=== PATIENT | male | born 1965 | race Caucasian/White ===

== ENCOUNTER 2019-11-11 09:11 | Day surgery (SDC) | payer OTHER ==
[2019-11-11] MEDS ORDERED: propofoL 200 MG/20 ML VIAL IV ONE (09:29)
[2019-11-11] MEDS ORDERED: FENTANYL CITR 100 MCG/2 ML ONE (09:29)
[2019-11-11] MEDS ORDERED: MIDAZOLAM HCL 2 MG/2 ML INJ ONE (09:30)
[2019-11-11] MEDS ORDERED: LIDOCAINE 1% MPF 5 ML VIAL ONE (09:30)
[2019-11-11] MEDS ORDERED: ONDANSETRON 4 MG/2 ML VIAL ONE (09:32)
[2019-11-11] MEDS ORDERED: Ringers Lactate 1,000 ML IV ONE (09:40)
[2019-11-11] MEDS ORDERED: GENTAMICIN 80 MG/100 ML BAG 80 MG/100 ML BAG IV ONE (09:40)
[2019-11-11 10:44] LABS: Urine Appearance CLEAR; Urine Bilirubin NEGATIVE (NEG); Urine Blood 1+ (NEG); Urine Color YELLOW; Urine Glucose NEGATIVE (NEG); Urine Protein NEGATIVE (NEG); Urine Specific Gravity <=1.005 (1.005-1.030); Urine Urobilinogen 0.2 mg/dL (0.2-1.0)
[2019-11-11 10:53] VITALS: O2SAT 96
[2019-11-11 10:59] LABS: Urine Bacteria <20 /HPF (NONE SEEN); Urine RBC <5 /HPF (NONE SEEN)
[2019-11-11 11:00] LABS: Urine Culture Reflex Order NOT NEEDED
[2019-11-11 11:59] VITALS: BP 124/81; TEMP 98.3
== END 2019-11-11 11:50 | disposition home or self-care (01) ==
LOC: OR 09:11
PROVIDERS: ATTEND Urology
PROC: 0TJB8ZZ Inspection of Bladder, Via Natural or Artificial Opening Endoscopic (ICD-10-PCS; principal; 2019-11-11 10:00)
DX: N40.1 Benign prostatic hyperplasia with lower urinary tract symptoms (principal); N39.0 Urinary tract infection, site not specified; R30.0 Dysuria; R39.12 Poor urinary stream; R53.83 Other fatigue; E03.9 Hypothyroidism, unspecified; Z87.891 Personal history of nicotine dependence
CPT/HCPCS: 87088; 81001; 52000; J2704; J2250; J3010; J7120; J1580; J2405; 87086

== ENCOUNTER 2019-12-04 07:47 | Day surgery (SDC) | payer OTHER ==
[2019-12-02 14:07] LABS: Absolute Lymphocytes (CBC) 1.6 K/uL (0.7-4.9); Basophils % 0.8 % (0-1.3); Hematocrit 41.6 % (39.6-49.0); Lymphocytes % 28.3 % (15.3-44.8); MPV 8.4 fL (7.6-11.3); RBC Red Blood Cell Count 4.66 M/uL (4.33-5.43)
[2019-12-04] MEDS ORDERED: Ringers Lactate 1,000 ML IV ONE (08:07)
[2019-12-04] MEDS ORDERED: CEFAZOLIN/SWI 1gm 1 GM/10 ML SYR ONE (08:07)
[2019-12-04] MEDS ORDERED: ROCURONIUM 50 MG/5 ML VIAL IV ONE (08:32)
[2019-12-04] MEDS ORDERED: dexAMETHasone 10 MG/ML VIAL ONE (08:32)
[2019-12-04] MEDS ORDERED: MIDAZOLAM HCL 2 MG/2 ML INJ ONE (08:32)
[2019-12-04] MEDS ORDERED: FENTANYL CITR 100 MCG/2 ML ONE (08:32)
[2019-12-04] MEDS ORDERED: LIDOCAINE 2% MPF 5 ML VIAL ONE (08:32)
[2019-12-04] MEDS ORDERED: propofoL 200 MG/20 ML VIAL IV ONE (08:32)
[2019-12-04] MEDS ORDERED: KETOROLAC 30 MG/ML INJ ONE (09:34)
[2019-12-04] MEDS ORDERED: ONDANSETRON 4 MG/2 ML VIAL ONE (10:17)
[2019-12-04 10:20] VITALS: O2SAT 93
[2019-12-04 10:43] VITALS: BP 137/89; TEMP 97
[2019-12-04] MEDS ORDERED: HYDROCODONE/APAP 7.5/325 MG TAB ONE (11:10)
--- NOTE | 2019-12-04 11:44 | OP ---
Date of Procedure: 12/04/2019 Surgeon: Steven West MD Ict Managers: EZEQUIEL Melton. Preoperative Diagnosis: Incarcerated right inguinal hernia. Postoperative Diagnosis: Incarcerated right inguinal hernia. Procedure: Repair of incarcerated right inguinal hernia. Estimated Blood Loss: Minimal. Specimens: Hernia sac and cord lipoma. Anesthesia: General. Complications: None. Disposition: Patient tolerated the procedure in stable condition, taken to Recovery in good general condition. Operative Note: Patient was brought to the OR and placed in supine position, general anesthesia begu n. Patient was prepped and draped in the usual sterile fashion. Marcaine 0.5% was infiltrated in a field block fashion. A 15-blade was used to make a 4 cm oblique incision between the pubic tubercle and the anterior iliac superior spine. Subcutaneous tissue divided. Angel fascia identified and di vided. Aponeurosis identified, mobilized inferiorly to expose the shelving edge. The aponeurosis wa s very attenuated because of the incarceration. There was obvious incarcerated fat present. The apo neurosis was opened, the ilioinguinal nerve was retracted out of the field of dissection. Cord was m obilized at the pubic tubercle and skeletonized. There was incarcerated intestine in the hernia sac, which was reduced back into the peritoneal cavity and the sac was freed from the surrounding cord st ructures with sharp and blunt dissection. Bleeding controlled with cautery. Then, high ligation wit h 2-0 Prolene suture ligature and free hand tie done. Hernia sac excised, sent to Pathology as speci men. There was also cord lipoma there and then that was freed from the cord structures and high liga tion was done with 2-0 Prolene suture ligature and free hand tie and sent to Pathology as specimen. Then, Marlex mesh plug was placed in the internal ring. Skin with VersaTack stapler, onlay mesh was placed on the inguinal floor, secured medially to the pubic tubercle, inferior to the shelving edge, superior to the conjoined tendon, laterally to each other. Then, cord structures and ilioinguinal ne rve placed back in anatomic location. The aponeurosis was too attenuated for re-closure, 3-0 chromic was used to close Angel fascia. Hurlock were used to close the skin. Sterile dressing applied. P atient awakened and taken to Recovery in good general condition. Discharged home. The patient will go to Day Surgery and home when stable. Disposition: Home. Condition: Stable. Discharge Instructions: Resume home medications and diet. Activity as tolerated. No heavy lifting. Remove outer dressing in 2 days. Shower. Keep wound clean and dry. Keep Steri-Strips on at all t imes. Scrotal support, ice pack as ordered. Follow up in my office in 1 week. MARVIN/VENKAT Voice ID: [id number] Report ID: [id number]
== END 2019-12-04 12:25 | disposition home or self-care (01) ==
LOC: OR 07:47
PROVIDERS: ATTEND Surgery
PROC: 0YU50JZ Supplement Right Inguinal Region with Synthetic Substitute, Open Approach (ICD-10-PCS; principal; 2019-12-04 09:00)
DX: K40.30 Unilateral inguinal hernia, with obstruction, without gangrene, not specified as recurrent (principal); D17.6 Benign lipomatous neoplasm of spermatic cord; Z79.899 Other long term (current) drug therapy
CPT/HCPCS: 49507; 85025; 80048; 36415; 88302; J2704; J2250; J3010; J1100; J0690; J7120; J2405

== ENCOUNTER 2020-04-12 08:16 | Day surgery (SDC) | payer OTHER ==
--- OUTSIDE RECORDS SUMMARY | 2020-04-12 08:30 | XMS REPORT | Summary of Care ---
:1965 Author Organization [facility] Address [address] [place] [id number] Care Team Providers Name Role Phone Tanisha Diggs Primary Care Provider Reason for Visit Reason Comments Screening Pre-op Clearance Encounter Details Date Type Department Care Team Description 01/28/2020 Laboratory Only [facility] Yomi Arauz Jr., [address] [place] [address] COVID-19 (Primary Dx); Professional Office Only, Adc Test Special screening examination for viral disease Building Phlebotomy Lab Professional Office Building [address] [place] [address] , [address] [place] [address] Allergies No Known Allergiesdocumented as of this encounter (statuses as of 01/28/2020) Medications Medication Sig Dispensed Refills Start Date End Date Status traMADOL (ULTRAM) 50 mg Take 1 Tab by 20 Tab 0 08/28/2014 Active tablet mouth every 6 (six) hours as needed for Pain (scale 4-6). levothyroxine Take 137 mcg by 0 Active (SYNTHROID) 137 mcg mouth every tablet morning. omeprazole 20 mg capsule Take 20 mg by 0 Active mouth daily. documented as of this encounter (statuses as of 01/28/2020) Active Problems Problem Noted Date Hyperlipidemia 01/27/2020 GERD (gastroesophageal reflux disease) 01/27/2020 documented as of this encounter (statuses as of 01/28/2020) Social History Tobacco Use Types Packs/Day Years Used Date Former Smoker Cigarettes 2 31 Quit: 02/14/20 05 Smokeless Tobacco: Never Used Alcohol Use Drinks/Week oz/Week Comments No Sex Assigned at Date Recorded Not on file Job Start Date Occupation Industry Not on file Not on file Not on file Travel History Travel Start Travel End No recent travel history available. COVID-19 Exposure Response Date Recorded In the last month, have you been in contact with No / Unsure 01/28/2020 3:53 PM CDT someone who was confirmed or suspected to have Coronavirus / COVID-19? documented as of this encounter Last Filed Vital Signs Not on filedocumented in this encounter Plan of Treatment Date Type Specialty Care Team Description 01/29/2020 Hospital Encounter Surgery Yomi Arauz Jr., H yperlipidemia DPM [address] [place], [place] [address] 01/29/2020 Anesthesia Event Surgery Charissa Whitman , [address] [phone] 01/29/2020 Surgery Surgery Yomi Arauz Jr., TALONAV ICULAR JOINT DPM ARTHRODESIS [address] [place], [place] [address] Health Maintenance Due Date Last Done Comments HEPATITIS C (HCV) SCREEN 1965 DTaP,Tdap,and Td Vaccines (1 - 1975 Tdap) COLONOSCOPY 2014 Zoster Recombinant Vaccine 2014 (SHINGRIX) (1 of 2) LUNG CANCER SCREEN: Recommended 2019 for age 55-80 with 30 + pack year history INFLUENZA VACCINE (Season Ended) 2020 PNEUMOCOCCAL 0-64 YEARS COMBINED Aged Out No longer eligible based on SERIES patient's age to complete this topic documented as of this encounter Procedures Procedure Name Priority Date/Time Associated Diagnosis Comme nts CORONAVIRUS COVID-19 Routine 01/28/2020 10:18 COVID-19 Results for this TESTING AM CDT Special screening procedure are in examination for the results viral disease section. documented in this encounter Results CORONAVIRUS COVID-19 TESTING (01/28/2020 10:18 AM CDT) Pathologist Sig nature SARS-CoV-2 Not Detected Not Detected [facility] Specimen Swab - NASOPHARYNGEAL SWAB Narrative Performed At [facility] COVID-19 Assay is an isothermal nucleic [facility] acid amplification test intended for the qualitative detection of nucleic acid from SARS-CoV-2 viral RNA in nasopharyngeal ([facility]) specimens. It is used under Emergency Use Authorization (EUA) by FDA. The limit of detection (LOD) of the assay is 125 Genome Equivalents/mL. A positive result is indicative of the presence of SARS-CoV-2 RNA. Clinical correlation with patient history and other diagnostic information is necessary to determine patient infection status. A negative (Not Detected) result does not preclude SARS-CoV-2 infection. Clinical correlation with patient history and other diagnostic information should be used in patient management decisions. Invalid: Please collect a new specimen for repeat patient testing if clinically indicated. Performing Organization Address City/State/Zipcode Phone Number [facility] CLIA: [id number], [address] [place], [place] [address] documented in this encounter Visit Diagnoses Diagnosis COVID-19 - Primary Special screening examination for viral disease Special screening examination for unspec ified viral disease documented in this encounter Insurance Payer Benefit Plan Subscriber ID Effective Phone Address Typ e / Group Dates [employer] - [employer] [id number] 2019-Prese [address] Medic are Adv MANAGED MEDICARE ADV nt [id number] [place] [address] documented as of this encounter
--- OUTSIDE RECORDS SUMMARY | 2020-04-12 08:30 | XMS REPORT | Summary of Care ---
:1965 Author Organization [facility] - [facility] Address [address] [place] [id number] Care Team Providers Name Role Phone Tanisha Diggs Primary Care Provider Reason for Referral (Routine) Status Reason Specialty Diagnoses / Referred By Referred To Procedures Contact Contact New Request Diagnostic Diagnoses Hallux valgus, right Yomi Arauz Radiology Procedures FL TIME OR (NON-REPORTABLE) CARLOS EDUARDO Griffin [address] [place] [address] DR DOSHI [facility] [place] [address] Radiology Services (STAT) Status Reason Specialty Diagnoses / Referred By Referred To Procedures Contact Contact New Request Diagnostic Diagnoses Arthrodesis present Yomi Arauz Radiology Procedures XR CHEST 1 REGLA Griffin, CARLOS EDUARDO [address] [place] [address] DR DOSHI [address] [place] [id number] Reason for Visit Auth/Cert Status Reason Specialty Diagnoses / Procedures Referred By C ontact Referred To Contact Surgery Diagnoses Hallux valgus (acquired), right foot RIGHT BUNION M20.11 (ICD-10-CM) - Hallux valgus (acquired), right foot Adc Pre/Pacu/Post Procedures AL FUSION FOOT BONE,MIDTARSAL,1 JT TALONAVICULAR JOINT ARTHRODESIS [id number] - AL FUSION FOOT BONE,MIDTARSAL,[address] [place] [address] christi [place], [place] [address] Phone: Fax: Encounter Details Date Type Department Care Team Description 01/29/2020 Hospital Encounter [facility] Yomi Arauz [facility] , CARLOS EDUARDO [address] [place] [address] [place] [address] [place] [address] RT 1500AD [phone] [place], [place] [address] [phone] Allergies No Known Allergiesdocumented as of this encounter (statuses as of 01/29/2020) Medications Medication Sig Dispensed Refills Start Date [...] as of this encounter (statuses as of 01/29/2020) Active Problems Problem Noted Date Arthrodesis present 01/29/2020 Obesity (BMI 30-39.9) 01/29/2020 Hyperlipidemia 01/27/2020 GERD (gastroesophageal reflux disease) 01/27/2020 documented as of this encounter (statuses as of 01/29/2020) Social History Tobacco Use Types Packs/Day Years [...] of this encounter Last Filed Vital Signs Vital Sign Reading Time Taken Comments Blood Pressure 126/77 01/29/2020 10:40 AM CDT Pulse 71 01/29/2020 10:40 AM CDT Temperature 36.6 C (97.9 F) 01/29/2020 6:37 AM CDT Respiratory Rate 12 01/29/2020 10:40 AM CDT Oxygen Saturation 95% 01/29/2020 10:40 AM CDT Inhaled Oxygen Concentration - - Weight 120.2 kg (265 lb) 01/27/2020 2:00 PM CDT Height 185.4 cm (6' 1") 01/27/2020 2:00 PM CDT Body Mass Index 34.96 01/27/2020 2:00 PM CDT documented in this encounter Discharge Summaries Yomi Arauz Jr., DPM - 01/29/2020 9:46 AM CDTCONDITION AT DISCHARGE: Patient was discharged from the facility in stable condition. Please see tena arvizu instructions. FOLLOW UP CARE: See post op instructions. DISCHARGE DISPOSITION: HOME DISCHARGE INSTRUCTIONS GIVEN TO: PATIENT documented in this encounter Discharge Instructions InstructionsVeronika Petersen RN - 01/29/2020General Discharge Instructions Procedure: Lower Extremity Procedures Dr. Arauz 1. You may resume a regular diet. 2. Keep your incision clean and dry. Leave the surgical dressing in place until you are seen in clinic by Dr. Arauz. When showering, cover the splint/ surgical dressing with a plastic bag to prevent it from getting wet. 3. Non weight bearing as advised with the use of crutches or a walker. 4. Elevate the leg while sitting or lying down to provide comfort, support and decrease swelling. 5. Deep Vein Thrombosis Prophylaxis when resting/ sitting, flex and extend the non-surgical foot, and if allowed may flex/ extend the knee, 10 times every 30 minutes to prevent blood clots. 6. Take prescribed pain medications around the clock for the 1st 24 hours. If provided, take antibiotics as prescribed until completely finished. 7. No driving until you no longer require pain medications and have been cleared by your physician. 8. Call Dr. Stanford office or seek emergency help if you develop significant pain, excessive bleeding or signs of infection (fever, redness, warmth, swelling, chest pain, breathlessness, altered blood sugar levels, sweating, altered consciousness, or pain). 9. Check circulation on the surgical extremity every 2 hours for the 1st 24 hours. Assess capillary refill by pressing the tip of the toenail to ensure proper blood flow. The tissue will turn a palecolor while you apply pressure but the toe should return to a normal pink color within 3 seconds of pressure withdrawal. Assess the color and temperature of the toes then compare these findings to theunaffected foot. Assess the ability to move the toes as well as any numbness or tingling. Changes or inconsistencies between extremities is a good indicator of reduced blood flow or nerve damage and should be reported to Dr. Stanford office immediately. Contact Information After Hours: [facility] Access Line [phone] and ask to speak to the Nurse On-Call General Surgical Discharge Instructions: ? The medication that was used will be acting in your system for the next 24 hours, so you might feel a little drowsy, with impaired judgment and/ or motor function. This feeling should wear off. Because the medication is still in your system for the next 24 hours you SHOULD NOT: o Drive a car, operate machinery or power tools. o Drink any alcoholic beverages. o Make any important decisions or sign any legal documents. ? You should rest the remainder of the day and not engage in any physical activity. YOU ARE RESPONSIBLE FOR HAVING SOMEONE AT HOME WITH YOU DURING THE AFTERNOON AND NIGHT IMMEDIATELY FOLLOWING YOUR SURGERY. Patients should cough and deep breathe every 2-4 hours while awake to avoid respiratory complications. ? Because the medications used could produce some residual nausea and vomiting after you go home, you should eat lightly today, starting with clear liquids (broth, soft drinks, apple juice, jello) and toast or crackers, progressing to your normal diet as tolerated. If you get sick, wait a couple of hours and then begin to eat. After 24 hours the nausea should be gone. If your nausea persists, callyour physician. ? You may experience some pain and your physician will advise you on what to take for discomfort. This should be taken as directed. If the pain is not relieved, contact your physician. You may also have a sore throat from the airway/ breathing tube that was in place. You may use lozenges, throat spray (Chloraseptic), or warm salt water gargles for symptomatic relief. ? If you are unable to urinate within five hours after your procedure, call your physician. ? The type of surgery performed will determine how much bleeding (if any) to expect. Normally, somespotting might occur. If your dressing pad become saturated, notify your physician. Elevate surgical site, if applicable, to reduce swelling and pain. ? Preventing a surgical site infection: o Dont smoke. It is best to quit at least 30 days before surgery, but quitting after surgery is also helpful. o If you are a diabetic, keep your blood sugar well controlled. WASH YOUR HANDS. o Keep your wound clean and remember to wash your hands before and after contact with the area. o Call your doctor if you have signs of infection: ? increased tenderness at the surgical site ? red streaks or increased redness of the area ? bad-smelling discharge from the incision ? fever of 101 or higher Crutches: How to Use What are crutches? Crutches are supports that help you walk when you have an injured leg or foot. How do I use crutches? Walking Hold the qa specialist of the crutches. Bring the crutches forward evenly, keeping your injured leg off the ground. Lean forward, putting your weight on the qa specialist. Swing your good leg forward, placing your foot just in front of the crutches. Repeat. Don't rest your armpits on the crutches. The pressure of your weight on the underarms can cause damage to nerves that pass through the armpits. In some cases your healthcare provider may allow you to put some weight on your injured leg whileyou are using crutches. Follow your providers instructions. Getting up from a chair or bed Using the hand on the side of your injured leg, hold both crutches together by the qa specialist. Use your other hand to push up from the chair or bed while you also push up on the crutches. Stand on your goodleg. Get your balance and bring your crutches into position on each side before you start to walk. Sitting down Using the hand on the side of your injured leg, hold both crutches together by the qa specialist. Hold onto the chair or bed with the other hand and lower yourself slowly. Unless you are allowed to put some weight on your injured leg, keep your injured leg off the ground and keep your weight on the good leg. Stairs Going up. Get close to the stairs. Step up with the good leg. Then bring the crutches and the injured leg up to the same step. Repeat for each step. Going down. First bring the crutches and the injured leg down to the lower step. Then step down with the good leg. Repeat for each step. If there is a handrail, put both crutches under the arm opposite the rail and use the rail for support. Remember: "Up with the good, down with the bad." Going through doorways When you go through a doorway, be sure to give yourself enough room to allow your feet and crutches to clear the doorframe and door. After opening the door, block it from swinging closed with a crutch tip. How can I take care of myself while I'm using crutches? Be careful not to slip on water or ice. Sometimes crutches rub against the skin between your arms and chest. You may want to use body lotion or talcum powder to prevent skin chafing. If your hands get sore or tired, you may want to put extra padding on the crutch qa specialist. Be sure not to lean on the crutches and put pressure on your armpits. If you feel pressure on your armpits even when you use the crutches correctly, the crutches are too long and need to be shortened. [facility] Regional Anesthesia Peripheral Nerve Block Pamphlet Regional anesthesia is a type of anesthesia where your anesthesiologist injects medication near a cluster of nerves to numb only the area of your body that requires surgery. This injection, known as a "nerve block" can be performed for surgery on your extremities, or limbs, and blocks sensations from the arm or leg. Why regional anesthesia? Peripheral nerve blocks are often used to reduce the pain after surgery. You can expect up to 4-24 hours of pain relief after surgery; however, the exact duration of analgesia depends on many factors May allow your anesthesiologist to use less general anesthesia which may allow you to recover faster after the surgery is finished Strong opioid medications may cause constipation, itching, nausea, retching, breathing difficultyor drowsiness. Your nerve block can decrease the amount of these medications you may need after surgery and decrease possible side effects of nausea and feeling "groggy" Better pain control than intravenous narcotics Earlier recovery of bowel function Easier breathing resulting from better pain control Easier participation in physical therapy How is the nerve block done? After cleaning and numbing your skin, your anesthesiologist uses an ultrasound to make an injectionnear a cluster of nerves to "block" sensation to the area of your body that requires surgery. A special needle is placed near the cluster of nerves that need to be numbed for surgery. Occasionally, the needle will touch a nerve, causing a brief tingling sensation down the extremity where the regional block is being performed. The needle may also be used to temporarily obtain muscle twitches in theextremity where surgery will occur. The block is administered at an appropriate location to provideanesthesia for the surgery. What can I expect? Nerve blocks affect many types of nerves, including nerves that control movement, pain and normal sensation. Nerve blocks cause feeling such as: 1. Numbness and tingling 2. Heaviness 3. Weakness or inability to move your arm or leg 4. A feeling that your arm or leg has "fallen asleep" You might also not have full muscle control of the affected part of your body. Please be sure to always check with your physician or nurse before you start to use any affected extremities for standing up or try to do other motor tasks. If you are having a shoulder or arm surgery, you may received a brachial plexus block near your collar bone. These nerve blocks are generally well tolerated but there may be signs and symptoms that you may notice, such as: 1. Change of your pupil size on the affected side 2. Slight droop of your eyelid 3. Stuffy nose 4. Certain degree of hoarseness 5. Mild shortness of breath These are normal reactions which typically go away after the nerve block is gone. If you have severe or prolonged shortness of breath, please go to the nearest Emergency Room. Instructions on Taking Your Pain Medication If needed, your surgeon will give you a prescription for pain medication. Start taking this medication before the nerve block first begins to wear off or when you first begin to feel discomfort. It often takes about 60 minutes for the oral pain medication to become fully effective. Keep in mind that nerve blocks often wear off in the middle of the night. If you are going to bed and the block has not started to wear off or you have not had any discomfort, consider taking your medication prior to going to sleep to prevent it from wearing off while you sleep. Another option is to set an alarm to go off in 2-3 hours so you can assess your block. If you notice the block is wearing off or you are starting to have discomfort, you can then take your medication. Once a nerve blockstarted to wear off, it is usually completely gone within 60 minutes. You need to take your pain medication as prescribed. Pain medications can cause sedation and decrease your breathing if you take more than you need for the level of pain you are having. Protection of a Numb Arm or Leg After a nerve block, you cannot feel pain, pressure or extremes in temperature in the affected limb, increasing the risk for injury. For example, it is possible to burn your numb arm or leg on a hot stove without knowing it. Here are some helpful tips to protect your arm or leg while it is numb: 1. Change position of your arm or leg often while awake (avoids putting too much pressure for long periods of time) 2. While sleeping, pad the limb with pillows to avoid rolling onto it while you sleep. If you havehad a shoulder or arm block, it is a good idea to sleep in a recliner with pillows under your arm toavoid rolling onto your numb arm as you sleep. 3. If you have a cast or tight dressing, check the color of your fingers/toes every couple of hours. Call your surgeon if any look discolored. 4. If you have had a leg block, have someone assist you with walking until the nerve block completely wears off. 5. Your numb leg or arm will not be able to feel extremes in temperatures. Be sure to cover your limb appropriately before going outside. 6. Ask your family or other support people to help you with the above tips. If you continue to feel the effects of the nerve block for longer than 48 hours, or if you have any other questions related to your nerve block, please call [phone] ([facility] acute pain service pager.Please enter your return phone number after the beeps). documented in this encounter Plan of Treatment Health Maintenance Due Date Last Done Comments [...] this topic documented as of this encounter Implants Implanted Type Area Carbide Die Maker Device Shelf Model / Identifier Expiration Serial / Date Lot Lapiplasty, System 2, Plating W/ 2.7mm Screws - Sn/A PLATE Right: [facility] 10/22/2022 [id number] / Implanted: Qty: 1 on 01/29/2020 by Yomi Arauz Jr., DPM at [facility] Foot CONCEPTS N /A / [id number] documented as of this encounter Procedures Procedure Name Priority Date/Time Associated Diagnosis Comme nts FL TIME OR Routine 01/29/2020 9:40 Hallux valgus, right Res ults for this (NON-REPORTABLE) AM CDT procedure a re in the results section. XR CHEST 1 VW STAT 01/29/2020 7:04 Arthrodesis present Res ults for this AM CDT procedure are i n the results section. CBC WITH DIFFERENTIAL STAT 01/29/2020 6:46 Re sults for this AM CDT procedure are i n the results section. ACTIVATED PARTIAL STAT 01/29/2020 6:46 Result s for this THRMPLAS KATHY AM CDT procedure are i n the results section. PROTHROMBIN TIME / STAT 01/29/2020 6:46 Resul ts for this INR AM CDT procedure are i n the results section. CBC WITH DIFFERENTIAL STAT 01/29/2020 6:46 Re sults for this AM CDT procedure are i n the results section. BASIC METABOLIC PANEL STAT 01/29/2020 6:46 Re sults for this (NA, K, CL, CO2, AM CDT procedure a re in GLUCOSE, BUN, the results CREATININE, CA) section. CONSENT/REFUSAL FOR Routine 01/28/2020 1:10 DIAGNOSIS AND PM CDT TREATMENT ASSIGNMENT OF Routine 01/28/2020 1:10 BENEFITS PM CDT documented in this encounter Results FL TIME OR (NON-REPORTABLE) (01/29/2020 9:40 AM CDT) Specimen Narrative Performed At These images do not require a Radiology diagnostic rep ort. PACS Performing Organization Address City/[facility] Phone Number PACS XR CHEST 1 VW (01/29/2020 7:04 AM CDT) Specimen Narrative Performed At . EXAM: XR CHEST 1 VW PACS/VR/DOSE HISTORY: surgery COMPARISON: None. FINDINGS: The heart and great vessels are normal and the lungs a re well expanded and clear Procedure Note [facility], Radiant Results Inft User - 2019 8:10 AM CDT . EXAM: XR CHEST 1 VW HISTORY: surgery COMPARISON: None. FINDINGS: The heart and great vessels are normal a nd the lungs are well expanded and clear Performing Organization Address City/[facility] Phone Number PACS/VR/DOSE CBC WITH DIFFERENTIAL (01/29/2020 6:46 AM CDT) Pathologist Sig nature WBC 5.26 4.20 - 10.70 [facility] 10*3/L [facility] RBC 4.99 4.26 - 5.52 [facility] 10*6/L [facility] HGB 15.2 12.2 - 16.4 g/dL [facility] HCT 44.2 38.4 - 49.3 % [facility] MCV 88.6 81.7 - 95.6 fL [facility] MCH 30.5 26.1 - 32.7 pg [facility] MCHC 34.4 31.2 - 35.0 g/dL [facility] RDW-SD 40.6 38.5 - 51.6 fL [facility] RDW-CV 12.6 12.1 - 15.4 % [facility] PLT 183 150 - 328 [facility] 10*3/L [facility] MPV 10.2 9.8 - 13.0 fL [facility] NRBC/100 WBC 0.0 0.0 - 10.0 /100 [facility] WBCs [facility] NRBC x10^3 <0.01 10*3/L [facility] GRAN MAT (NEUT) % 62.6 % [facility] IMM GRAN % 0.40 % [facility] LYMPH % 24.5 % [facility] MONO % 9.9 % [facility] EOS % 1.5 % [facility] BASO % 1.1 % [facility] GRAN MAT x10^3(ANC) 3.29 1.99 - 6.95 [facility] 10*3/uL [facility]ITAL [facility] IMM GRAN x10^3 <0.03 0.00 - 0.06 [facility] 10*3/uL [facility] LYMPH x10^3 1.29 1.09 - 3.23 [facility] 10*3/uL [facility] MONO x10^3 0.52 0.36 - 1.02 [facility] 10*3/uL [facility] EOS x10^3 0.08 0.06 - 0.53 [facility] 10*3/uL [facility] BASO x10^3 0.06 0.01 - 0.09 [facility] 10*3/uL [facility] Specimen Blood - ARM, RIGHT Performing Organization Address City/[facility]/Zipcode Phone Number [facility] CLIA: [id number], [address] [place], [place] [address] aPTT (01/29/2020 6:46 AM CDT) Pathologist Sig nature APTT Patient 35 23 - 38 Seconds [facility] Specimen Blood - ARM, RIGHT Narrative Performed At The [facility] patient population mean normal value [facility] for aPTT is 30 seconds. Performing Organization Address City/[facility]/Zipcode Phone Number [facility] CLIA: [id number], [address] [place], [place] [address] PROTHROMBIN TIME / INR (01/29/2020 6:46 AM CDT) PROTIME PATIENT 12.3 12.0 - 14.7 [facility] Seconds [facility] INR 1.0Comment: Normal [facility] INR <1.1; [facility] Therapeutic range LABORATORY 2.0 to 3.0 or 2.5 to 3.5, depending upon the indications. Specimen Blood - ARM, RIGHT Performing Organization Address [facility] Cent[facility]ode Phone Number [facility] CLIA: [id number], [address] [place] [id number] [address] BASIC METABOLIC PANEL (NA, K, CL, CO2, GLUCOSE, BUN, CREATININE, CA) (01/29/2020 6:46 AM CDT) Pathologist Sig nature NA 140 135 - 145 [facility] mmol/L [facility] K 4.2 3.5 - 5.0 [facility] mmol/L [facility] CL 106 98 - 108 mmol/L [facility] CO2 TOTAL 26 23 - 31 mmol/L [facility] AGAP 8 2 - 16 [facility] BUN 14 7 - 23 mg/dL [facility] GLUCOSE 112 (H) 70 - 110 mg/dL [facility] CREATININE 0.82 0.60 - 1.25 [facility] mg/dL [facility] CALCIUM 9.3 8.6 - 10.6 [facility] mg/dL [facility] eGFR Calculation 97.5 mL/min/1.73m2 [facility] ([facility] LABORATORY Brazilian) eGFR Calculation 118.2 mL/min/1.73m2 [facility] () [facility] Specimen Blood - ARM, RIGHT Narrative Performed At Association of Glomerular Filtration Rate (GFR) [facility] and Staging of Kidney Disease* + + +- + | GFR (mL/min/1.73 m2) | With Kidney Damage | Without Kidney Damage + + +- + | >90 | Stage one | Normal + + +- + | 60-89 | Stage two | Decreased GFR + + +- + | 30-59 | Stage three | Stage three + + +- + | 15-29 | Stage four | Stage four + + +- + | <15 (or dialysis) | Stage five | Stage five + + +- + *Each stage assumes the associated GFR level has been in effect for at least three months. Stages 1 to 5, with or without kidney disease, indicate chronic kidney disease. Notes: Determination of stages one and two (with eGFR >59mL/min/1.73 m2) requires estimation of kidney damage for at least three months as defined by structural or functional abnormalities of the kidney, manifested by either: Pathological abnormalities or Markers of kidney damage (including abnormalities in the composition of the blood or urine or abnormalities in imaging tests). Performing Organization Address City/State/Zipcode Phone Number [facility] CLIA: [id number], [address] [place] [address] [facility] documented in this encounter Visit Diagnoses Diagnosis Arthrodesis present - Primary Arthrodesis status Hallux valgus, right Hyperlipidemia Other and unspecified hyperlipidemia GERD (gastroesophageal reflux disease) Esophageal reflux Obesity (BMI 30-39.9) Obesity, unspecified documented in this encounter Administered Medications Medication Order MAR Action Action Date Dose Rate Site bupivacaine (preserv free) Given 01/29/2020 8:13 AM CDT 10 mL Right Foot 0.5% (SENSORCAINE MPF) 0.5 % (5 mg/mL) 5 mL, lidocaine 1% (PF) (XYLOCAINE) 5 mL PRN, Starting Reena 01/29/20 at 0831, Intra-op HYDROcodone-acetaminophen (NORCO) 10-325 mg tablet 1 tablet 1 tablet, Oral, Q6HPRN, Starting Reena 01/09 09/29 at 0949, Until Discontinued, Routine, Pain (scale 4-6), DSU Recovery HYDROcodone-acetaminophen (NORCO) 10-325 Given 01/29/2020 10 :31 AM CDT 1 tablet mg tablet 1 tablet 1 tablet, Oral, Q6HPRN, Starting Reena 01/29/20 at 0949, Until Discontinued, Routine, Pain (scale 4-6), Pain (scale 7-10), DSU Recovery morpHINE injection 2 mg 2 mg, Slow IV Push, Q5MIN PRN, 5 doses, Starting Reena at 0949, Until Discontinued, Routine, Pain (scale 4-6), PACU morpHINE injection 4 mg 4 mg, Slow IV Push, Q5MIN PRN, 2 doses, Starting Reena at 0949, Until Discontinued, Routine, Pain (scale 7-10), PACU ondansetron (ZOFRAN (PF)) injection 4 mg 4 mg, Slow IV Push, PRN, 1 dose, Startin g Reena 01/29/20 at 0949, Until Discontinued, Routine, Nausea and Vomiting (N/V), PACU sodium chloride 0.9 % irrigation Given 01/29/2020 8:13 AM CDT 1 ,000 mL Right Foot solution PRN, Starting Reena 01/29/20 at 0833, Until Discontinued, Intra-op traMADol (ULTRAM) tablet 50 mg 50 mg, Oral, Q6HPRN, Starting Reena 01/29/20 at 0949, Unt il Discontinued, Routine, Pain (scale 1-3), DSU Recovery documented in this encounter Insurance Payer Benefit Plan Subscriber ID Effective Phone Address Typ e / Group Dates AETNA - AETNA MEBTVFJZ 2019-Prese P O BOX Medic are Adv MANAGED MEDICARE ADV nt [id number] [place] [address] documented as of this encounter
--- OUTSIDE RECORDS SUMMARY | 2020-04-12 08:30 | XMS REPORT | Continuity of Care Document ---
:1965 [address] [facility] t Address [address] [place] [address] Care Team Providers Name Role Phone Tanesha Arauz DPM Attending Clinician Lisa Whitman CRNA Attending Clinician Veronica Day MD Attending Clinician Only, Test Attending Clinician Unavailable Tanesha Arauz DPM Admitting Clinician Problems This patient has no known problems. Allergies, Adverse Reactions, Alerts This patient has no known allergies or adverse reactions. Medications This patient has no known medications. Procedures This patient has no known procedures. Encounters Start End Encounter Admission Attending Care Care Encounter Source Date/Time Date/Time Type Type Clinicians Facility Department ID 2020-01-29 2020-01-29 [facility] [id number] 06:29:00 11:24:00 Encounter Yomi García [id number] [place] [id number] Surgical [id number] [place] 071 2020-01-29 2020-01-29 Anesthesia Charissa Whitman [facility] [id number] 08:00:00 09:53:00 Jose Miguel Day [id number] [place] [id number] Surgical [id number] [place] 020 2020-01-28 2020-01-28 Laboratory Only, [facility] [id number] 10:16:22 10:31:22 Only Test Ricky [id number] [place] [id number] Professio [id number] [facility] [address] Results This patient has no known results.
--- OUTSIDE RECORDS SUMMARY | 2020-04-12 08:31 | XMS REPORT | Summary of Care ---
:1965 Author Organization [facility] - Health Address [address] [place] [address] Care Team Providers Name Role Phone DontaeTanisha Primary Care Provider Reason for Visit Auth/Cert Status Reason Specialty Diagnoses / Procedures Referred By Rahul ontact Referred To Contact Surgery Diagnoses Hallux valgus (acquired), right foot RIGHT BUNION M20.11 (ICD-10-CM) - Hallux valgus (acquired), right foot Adc Pre/Pacu/Post Procedures LA FUSION FOOT BONE,MIDTARSAL,1 JT TALONAVICULAR JOINT ARTHRODESIS 12840 - LA FUSION FOOT BONE,MIDTARSAL,1 JT [address] [facility] [place] [address] Phone: Fax: Encounter Details Date Type Department Care Team Description 01/29/2020 Anesthesia [facility] Jose Miguel Borjas MD [address] [facility] [id number] [place] [address] [phone] Surgical Center Charissa Whitman CRNA [address] [place] [id number] [address] [place] [address] [address] [place], [place] [id number] Allergies No Known Allergiesdocumented as of this encounter (statuses as of 01/30/2020) Medications Medication Sig Dispensed Refills Start Date [...] as of this encounter (statuses as of 01/30/2020) Active Problems Problem Noted Date Arthrodesis present 01/29/2020 Obesity (BMI 30-39.9) 01/29/2020 Hyperlipidemia 01/27/2020 GERD (gastroesophageal reflux disease) 01/27/2020 documented as of this encounter (statuses as of 01/30/2020) Social History Tobacco Use Types Packs/Day Years [...] filedocumented in this encounter Plan of Treatment Health [...] of this encounter Implants Implanted Type Area X Ray Equipment Servicer Device Shelf Model / Identifier Expiration Serial / Date Lot Lapiplasty, System 2, Plating W/ 2.7mm Screws - Sn/A PLATE Right: [facility] 10/22/2022 [id number] / Implanted: Qty: 1 on 01/29/2020 by Yomi Arauz Jr., DPM at [facility] Foot CONCEPTS N /A / [id number] documented as of this encounter Procedures Procedure Name Priority Date/Time Associated Diagnosis Comme nts NERVE BLOCK Routine 01/30/2020 7:23 AM Results for this CDT procedure are i n the results section . INTUBATION Routine 01/29/2020 8:17 AM Results for this CDT procedure are i n the results section . documented in this encounter Results Nerve Block - Popliteal and adductor canal nerve blocks (01/30/2020 7:23 AM CDT) Narrative Performed At Jose Miguel Day MD 01/30/2020 7:30 AM Nerve Block Procedure: Other Peripheral Nerve Laterality: Right Surgical Anesthesia: no Start Time: 01/29/2020 7:10 AM End Time: 01/29/2020 7:34 AM Post Op Pain Management requested by chelsey leal per surgical: Other (per discussion) Anesthesiologist: Jose Miguel Day M D Performed by: anesthesiologist Preanesthetic timeout completed prior to procedure: pa tient identified,IV checked, site marked, risks and benefits discussed, surgical consent, monitors and equipment checked, pre-op e valuation, timeout performed Informed consent obtained patient wishes to proceed: yes Patient position: supine. Sterile Prep/Drape: Yes Monitoring: continuous pulse ox and bloo d pressure Injection Technique: single-shot Needle Type: Stimuplex Needle Gauge: 21 G Needle Length: 6.0 Number of Attempts: 1 Motor response present at (mA): 0.6 (att enuated at) Technique: Stimulating needle, Ultrasound guided, Nega tive aspiration and Intermittent aspiration during injection Sensory Effect: Adequate Events: Patient tolerated procedure well , Negative Aspiration, No paresthesia on incremental injection, Local anesthetic solution visualized around nerve and No symptoms of intraneu ral or IV injection Medications Given: Regional: Ropiv 0.5% 30 mL Sedation: Midazolam 2 mg Fentanyl 50 mcg Additional Notes:SP&D to right leg. Stimulating needle passed to sciatic nerve approx 10 cm proximal to popliteal crease. Nee dle visualized and stimulation noted. Stimulation attenuated at 0.6 mA. 20 ml of solution deposited around nerve. Next adductor canal visualiz ed, needle advanced to it and 10 ml of solution deposited ar ound nerve. Patient tolerated procedure well with medications administ ered as noted. ___ __ Intubation (01/29/2020 8:17 AM CDT) Narrative Performed At Cecil Lee CRNA 01/29/2020 8:1 7 AM Intubation Urgency: elective Airway not difficult General Information and Staff Patient location during procedure: OR Resident/DRAPERY HAND: Cecil Lee CRNA Performed: resident/DRAPERY HAND Indications and Patient Condition Indications for airway management: anest hesia Spontaneous Ventilation: absent Sedation level: deep Preoxygenated: yes Patient position: sniffing Mask difficulty assessment: 0 - not atte mpted Final Airway Details Final airway type: supraglottic airway Successful airway: unique Size 5 Number of attempts at approach: 1 Additional Comments Airway dry intact documented in this encounter Administered Medications Medication Order MAR Action Action Date Dose Rate Site ceFAZolin (ANCEF) injection Given 01/29/2020 8:11 AM CDT 2 g ONCE INTRA PROCEDURE, Starting Reena 01/29/20 at 0811, Until Reena 01/29/20 at 0953, GAUTAM, Intra-op dexamethasone (DECADRON PHOSPHATE) injec tion Given 01/29/2020 8:13 AM CDT 4 mg Intravenous, ONCE INTRA PROCEDURE, Starting Reena 01/29/20 at 0813, Until Reena 01/29/20 at 0953, Routine, Intra-op FENTanyl PF (SUBLIMAZE (PF)) injection Given 01/29/2020 8:03 AM CDT 50 mcg Intravenous, ONCE INTRA PROCEDURE, Starting Reena 01/29/20 at 0800, Until Reena 01/29/20 at 0953, Routine, Intra-op Given 01/29/2020 8:00 AM CDT 50 mcg lactated ringers IV infusion New Bag 01/29/2020 8:00 AM CDT IV Infusion, CONTINUOUS PRN, Starting Reena 01/29/20 at 0800, Until Reena 01/29/20 at 0953, Routine, Intra-op midazolam (VERSED) injection Given 01/29/2020 8:00 AM CDT 2 mg IV Push, ONCE INTRA PROCEDURE, Starting Reena 01/29/20 at 0800, Until Reena 01/29/20 at 0953, Routine, Intra-op phenylephrine (VAZCULEP) injection Given 01/29/2020 8:59 AM CDT 100 mcg ONCE INTRA PROCEDURE, Starting Reena 01/29/20 at 0859, Until Reena 01/29/20 at 0953, Routine, Intra-op propofol IV infusion Given 01/29/2020 8:03 AM CDT 200 mg Intravenous, ONCE INTRA PROCEDURE, Starting Reena 01/29/20 at 0803, Until Reena 01/29/20 at 0953, Routine, Intra-op documented in this encounter Insurance Payer Benefit Plan Subscriber ID Effective Phone Address Typ e / Group Dates AETNA - AETNA MEBTVFJZ 2019-Prese P O BOX Medic are Adv MANAGED MEDICARE ADV nt [id number] [place] [address] documented as of this encounter
[2020-04-12] MEDS ORDERED: CEFAZOLIN/SWI 1gm 1 GM/10 ML SYR ONE (08:46)
[2020-04-12] MEDS ORDERED: Ringers Lactate 1,000 ML IV ONE ×2 (08:46→12:01)
[2020-04-12] MEDS ORDERED: MIDAZOLAM HCL 2 MG/2 ML INJ ONE (09:11)
[2020-04-12] MEDS ORDERED: ROCURONIUM 50 MG/5 ML VIAL IV ONE ×2 (09:11→10:32)
[2020-04-12] MEDS ORDERED: LIDOCAINE 1% MPF 5 ML VIAL ONE (09:11)
[2020-04-12] MEDS ORDERED: FENTANYL CITR 100 MCG/2 ML ONE ×3 (09:11→11:18)
[2020-04-12] MEDS ORDERED: propofoL 200 MG/20 ML VIAL IV ONE (09:11)
[2020-04-12] MEDS ORDERED: dexAMETHasone 10 MG/ML VIAL ONE (10:08)
[2020-04-12] MEDS ORDERED: KETOROLAC 30 MG/ML INJ ONE (10:08)
[2020-04-12] MEDS ORDERED: ONDANSETRON 4 MG/2 ML VIAL ONE (10:09)
[2020-04-12] MEDS ORDERED: GLYCOPYRROLATE 0.2 MG/ML SYR ONE ×3 (10:32→11:28)
[2020-04-12] MEDS ORDERED: EPHEDRINE SULF 50 MG/ML VIAL ONE (10:41)
[2020-04-12] MEDS ORDERED: NS 0.9% VIAL 10 ML ONE (10:42)
[2020-04-12] MEDS ORDERED: NEOSTIGMINE 1 MG/ML -5 ML ONE (11:28)
[2020-04-12 12:50] VITALS: BP 144/90; TEMP 96.9; O2SAT 95
[2020-04-12] MEDS ORDERED: HYDROCODONE/APAP 7.5/325 MG TAB ONE (13:05)
--- NOTE | 2020-04-12 21:40 | OP ---
Date of Procedure: 04/12/2020 Surgeon: Steven West MD Reel Tender: EZEQUIEL Melton Preoperative Diagnoses: Recurrent right inguinal hernia and umbilical hernia. Postoperative Diagnoses: Recurrent right inguinal hernia and umbilical hernia. Procedures: Repair of right inguinal hernia, repair of umbilical hernia, and diagnostic laparoscopy. Estimated Blood Loss: Minimal. Specimens: Hernia sac. Findings: As above. Anesthesia: General. Complications: None. The patient tolerated the procedure in stable condition, taken to Recovery in good general condition. Please note, I asked Dr. Abad to review the findings, which was the appendix in the hernia sac. It is unusual. Discussed the case with him. Description Of Procedure: The patient was brought to the OR and placed in supine position. General anesthesia was begun. The patient was prepped and draped in usual sterile fashion. Marcaine 0.5% wa s infiltrated locally. A 15 blade was used to make a 4 cm oblique incision in the right groin. Subc utaneous tissue was divided. Angel's fascia identified and divided. The mesh plug was floating int o the tissue that had apparently from the internal ring. This was removed with sharp and b césar dissection. Cord was mobilized at the pubic tubercle. There was no aponeurosis. It was very a ttenuated. The cord was skeletonized and then there was what appeared to be a sliding hernia sac, wh ich was opened and in the tip of the sac, there was the appendix present with cecum. This was freed from the medial wall as this appeared to be a sliding hernia and , and then reduced back int o the peritoneal cavity. The hernia sac was excised and sent to Pathology. There was a new internal ring defect, remained. It was large, which was reapproximated with [id number] and 2-0 Prolene suture ligature. Then, there was a new internal ring created as well as the direct area where the sl iding hernia was, and Marlex mesh plug was placed in both locations and secured with VersaTack staple r. Onlay mesh was placed on the inguinal floor, secured medially to the pubic tubercle, and inferior ly to the shelving edge, laterally to each other and at the conjoined tendon. Cord structu res and ilioinguinal nerve were placed back in anatomic location. 3-0 chromic was used to approximat e subcutaneous tissue and close the skin. Then, a 2 cm incision was made over the umbilicus. There was a small umbilical hernia present of approximately 1 cm. Subcutaneous tissue was divided. Hernia sac and contents were identified and excised, good fascial edges obtained. #[address] aced and peritoneal cavity entered with 12 mm trocar under direct vision. Pneumoperitoneum was estab lished and a 5 mm trocar was placed in the left lower quadrant. Laparoscopy revealed complete covera ge of the hernia in the right inguinal region. I some of the scar tissue that was present on medially where the sliding hernia sac was and there was free peritoneum that was present and we us ed this to cover the internal ring with AbsorbaTack to cover the entire hole. This would allow a sec ond layer of protection for the patient. There was no other evidence of disease seen. The appendix was completely normal. There was no reason to remove the appendix at this time. There was no eviden ce of any inflammation noted. Then, all trocars were removed under direct vision. Stay sutures were tied to each other to close the umbilical hernia defect. Subcutaneous wounds were irrigated. Bleed ing controlled with cautery. 3-0 chromic used to reapproximate subcutaneous tissue and close the ski n. Sterile dressing was applied. The patient was awakened and taken to Recovery in good general con dition. Discharge Note: The patient will go to Day Surgery and home when stable. Disposition: Home. Condition: Stable. Discharge Instructions: Resume home medications and diet. Activity as tolerated. No heavy lifting. Remove outer dressing in 2 days. Shower. Keep wound clean and dry. Keep Steri-Strips on at all t imes. Follow up in my office in 1 week. Call for appointment. [place] 7.5 p.o. q.4 p.r.n. pain. Scr otal support and ice pack as directed. /MODL Voice ID: [id number] Report ID: [id number]
== END 2020-04-12 13:45 | disposition home or self-care (01) ==
LOC: OR 08:16
PROVIDERS: ATTEND Surgery
PROC: 0WQF0ZZ Repair Abdominal Wall, Open Approach (ICD-10-PCS; 2020-04-12)
PROC: 0YU50JZ Supplement Right Inguinal Region with Synthetic Substitute, Open Approach (ICD-10-PCS; principal; 2020-04-12 10:00)
DX: K40.31 Unilateral inguinal hernia, with obstruction, without gangrene, recurrent (principal); K42.9 Umbilical hernia without obstruction or gangrene; Z11.59 Encounter for screening for other viral diseases; Z79.899 Other long term (current) drug therapy
CPT/HCPCS: 49521; 49585; 88302; U0002; J2704; J2250; J3010 ×3; J1100; J2710; J0690; J7120 ×2; J2405

== ENCOUNTER 2020-08-20 16:07 | Emergency (ER) | payer OTHER ==
[2020-08-20] MEDS ORDERED: HYDROCODONE/APAP 5/325 MG TAB ONE (18:56)
[2020-08-20] MEDS ORDERED: TETANUS & DIPHTHERIA TOX,ADULT 0.5 ML VIAL ONE (18:57)
--- NOTE | 2020-08-20 20:31 | ER ---
Nurse's Notes [facility] Name: Dontae Delgadillo Age: 55 yrs Sex: Male : 1965 Arrival Date: 08/20/2020 Time: 16:09 Bed 12 Private MD: Diagnosis: Contusion of left hand Presentation: 08/20 16:30 Chief complaint: Patient states: had hand caught between two 2 2x4's about an hour ago, em reports swelling and pain to left hand, small abrasion noted to top of the left hand. Coronavirus screen: Client denies travel out of the [place] in the last 14 days. Ebola Screen: Patient negative for fever greater than or equal to 101.5 degrees Fahrenheit, and additional compatible Ebola Virus Disease symptoms Patient denies exposure to infectious person. Patient denies travel to an Ebola-affected area in the 21 days before illness onset. No symptoms or risks identified at this time. Initial Sepsis Screen: Does the patient meet any 2 criteria? No. Patient's initial sepsis screen is negative. Does the patient have a suspected source of infection? No. Patient's initial sepsis screen is negative. Risk Assessment: Do you want to hurt yourself or someone else? Patient reports no desire to harm self or others. Onset of symptoms was August 20, 2020. 16:30 Method Of Arrival: Ambulatory em 16:30 Acuity: EDUARD 4 em Historical: - Allergies: 16:33 No Known Allergies; em - PMHx: 16:33 Hypothyroidism; em - PSHx: 16:33 Hernia repair; em - Immunization history:: Immunization history: Last tetanus immunization: unknown. - Social history:: Smoking status: Patient denies any tobacco usage or history of. Assessment: 16:33 General: Appears in no apparent distress. comfortable, Behavior is calm, cooperative, em appropriate for age. Pain: Complains of pain in left hand Pain currently is 5 out of 10 on a pain scale. Neuro: Level of Consciousness is awake, alert, obeys commands, Oriented to person, place, time, situation, Appropriate for age. Cardiovascular: Capillary refill < 3 seconds Patient's skin is warm and dry. Respiratory: Airway is patent Respiratory effort is even, unlabored, Respiratory pattern is regular, symmetrical. Derm: Wound noted dorsum of left hand Wound is abrasion noted to the left hand. Musculoskeletal: Circulation, motion, and sensation intact. Capillary refill < 3 seconds, Range of motion: intact in all extremities, Swelling present in left hand. 16:34 Reassessment: received VO from Dr. Adame to order left hand x-ray from triage. em Vital Signs: 16:30 BP 141 / 90; Pulse 84; Resp 18; Temp 97.5; Pulse Ox 99% on R/A; Weight 120.66 kg; em Height 6 ft. 1 in. (185.42 cm); Pain 5/10; 16:30 Body Mass Index 35.09 (120.66 kg, 185.42 cm) em ED Course: 16:09 Patient arrived in ED. ag5 16:32 Triage completed. em 16:33 Arm band placed on. em 17:20 Edis Worley PA is PHCP. [facility] 17:20 Evelio Adame MD is Attending Physician. [facility] 18:34 Hand Left 3 View XRAY In Process Unspecified. EDMS 20:31 David Elliott MD is Referral Physician. [facility] 20:59 Yola Noel, RN is Primary Nurse. dm5 Administered Medications: 18:44 Drug: [place] 5 mg-325 mg 1 tabs Route: PO; em 18:52 Drug: Tetanus-Diphtheria Toxoid Adult 0.5 ml {Packing Machine Pilot Can Router: [employer]. Exp: iw 11/21/2021. Lot #: [id number]. } Route: IM; Site: right deltoid; Outcome: 20:31 Discharge ordered by . [facility] 21:33 Patient left the ED. dm5 Signatures: Dispatcher [employer] EDAK Yola Noel, RN Edis Ballard PA PA jmm Munoz, Edgar, Shante Antonio RN, RN RN Joe Martin [facility]
--- NOTE | 2020-08-20 20:31 | EDPHYS ---
Physician Documentation [facility] Name: Dontae Delgadillo Age: 55 yrs Sex: Male : 1965 Arrival Date: 08/20/2020 Time: 16:09 Bed 12 Private MD: ED Physician Evelio Adame HPI: 08/20 18:26 This 55 yrs old Male presents to ER via Ambulatory with complaints of Crush jmm Injury To Hand. 18:27 Onset: The symptoms/episode began/occurred acutely, just prior to arrival. Modifying jmm factors: The symptoms are alleviated by nothing, the symptoms are aggravated by nothing. Associated signs and symptoms: Pertinent negatives: cyanosis distally, numbness distally, tingling distally. This is a 55 year old male with a history of hypothyroidism that presents to the ED with complaints of left hand pain which occurred after his hand was slammed between 2 planks of wood. . Historical: - Allergies: 16:33 No Known Allergies; em - PMHx: 16:33 Hypothyroidism; em - PSHx: 16:33 Hernia repair; em - Immunization history:: Immunization history: Last tetanus immunization: unknown. - Social history:: Smoking status: Patient denies any tobacco usage or history of. ROS: 18:27 Constitutional: Negative for fever, chills, and weight loss, Eyes: Negative for injury, jmm pain, redness, and discharge, ENT: Negative for injury, pain, and discharge, Neck: Negative for injury, pain, and swelling, Cardiovascular: Negative for chest pain, palpitations, and edema, Respiratory: Negative for shortness of breath, cough, wheezing, and pleuritic chest pain, Abdomen/GI: Negative for abdominal pain, nausea, vomiting, diarrhea, and constipation, Back: Negative for injury and pain. 18:27 MS/extremity: Positive for pain. 18:27 All other systems are negative. Exam: 18:27 Constitutional: This is a well developed, well nourished patient who is awake, alert, jmm and in no acute distress. Head/Face: atraumatic. Eyes: EOMI, no conjunctival erythema appreciated ENT: Moist Mucus Membranes Neck: Trachea midline, Supple Chest/axilla: Normal chest wall appearance and motion. Cardiovascular: Regular rate and rhythm. No edema appreciated Respiratory: Normal respirations, no respiratory distress appreciated Abdomen/GI: Non distended, soft Back: Normal ROM 18:27 Musculoskeletal/extremity: hematoma noted to the left hand, compartments are soft, NVI. 18:27 Skin: injury, hematoma noted to the left hand, abrasion noted ot the dorsum of the left hand. 18:27 Neuro: Orientation: is normal, Mentation: is normal, Memory: is normal, appropriate for stated age. 18:27 Psych: Behavior/mood is pleasant, cooperative. Vital Signs: 16:30 BP 141 / 90; Pulse 84; Resp 18; Temp 97.5; Pulse Ox 99% on R/A; Weight 120.66 kg; em Height 6 ft. 1 in. (185.42 cm); Pain 5/10; 16:30 Body Mass Index 35.09 (120.66 kg, 185.42 cm) em MDM: 17:53 Patient medically screened. [place] 20:29 Data reviewed: vital signs, nurses notes. Counseling: I had a detailed discussion with [place] the patient and/or guardian regarding: the historical points, exam findings, and any diagnostic results supporting the discharge/admit diagnosis, radiology results, the need for outpatient follow up, to return to the emergency department if symptoms worsen or persist or if there are any questions or concerns that arise at home. ED course: Xray is negative. patient advised to follow up with hand for reevaluation. Patient is otherwise given strict return prcautions. Patient understood and agrees with the plan of care. . 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 Exp: iw 11/21/2021. Lot #: [id number]. } Route: IM; Site: right deltoid; Disposition: 08/20/20 20:31 Discharged to Home. Impression: Contusion of left hand. - Condition is Stable. - Discharge Instructions: Hand Contusion. - Prescriptions for Ultracet 37.5- 325 mg Oral Tablet - take 1 tablet by ORAL route every 6 hours - for up to 5 days; do not exceed 8 tablets per day.; 20 tablet. - Medication Reconciliation Form, Thank You Letter, Antibiotic Education, Prescription Opioid Use form. - Follow up: David Elliott MD; When: 2 - 3 days; Reason: Recheck today's complaints, Continuance of care, Re-evaluation by your physician. Addendum: 08/22/2020 17:45 Co-signature as Attending Physician, Evelio Adame MD I agree with the assessment and k dr plan of care. Signatures: Dispatcher [employer] EDYola Novak, RN RN dm5 Evelio Adame MD MD [facility] Edis Worley PA PA jmm Munoz, Edgar, RN RN em Shante Qureshi RN RN iw Corrections: (The following items were deleted from the chart) 08/20 21:33 20:31 08/20/2020 20:31 Discharged to Home. Impression: Contusion of left hand. dm5 Condition is Stable. Forms are Medication Reconciliation Form, Thank You Letter, Antibiotic Education, Prescription Opioid Use. Follow up: David Elliott; When: 2 - 3 days; Reason: Recheck today's complaints, Continuance of care, Re-evaluation by your physician. [place]
--- NOTE | 2020-08-20 20:34 | RAD REPORT ---
EXAM DESCRIPTION: RAD - Hand Left 3 View - 08/20/2020 6:34 pm CLINICAL HISTORY: SWELLINGcrush injury to the hand COMPARISON: None. FINDINGS: No fracture, dislocation or periosteal reaction noted. Advanced for age degenerative romeo es are present throughout the IP joints of the hand. There is marginal spurring and joint space narro wing at all of the DIP joints with joint space narrowing at the PIP joints. Prominent spurring is pre sent at the IP joint of the thumb. There is mild degenerative change at the trapezial first metacarpa l articulation. Soft tissue swelling present over the dorsum of the hand. IMPRESSION: Soft tissue swelling is present with no fracture identifiable. Advanced for age degenerative change at the IP joints of the left hand.
[2020-08-25 08:48] VITALS: BP 141/90; TEMP 97.5; O2SAT 99
== END 2020-08-20 21:33 | disposition home or self-care (01) ==
LOC: ER 16:07
DX: S60.222A Contusion of left hand, initial encounter (principal); W23.0XXA Caught, crushed, jammed, or pinched between moving objects, initial encounter; Y93.9 Activity, unspecified; Y92.9 Unspecified place or not applicable; Z23 Encounter for immunization
CPT/HCPCS: 90471; 90714; 99283

== ENCOUNTER 2023-03-31 17:36 | Inpatient (IN) | payer OTHER ==
--- OUTSIDE RECORDS SUMMARY | 2023-03-31 17:40 | XMS REPORT | Continuity of Care Document ---
:1965 Author Organization [facility] t Address [address] [place] [address] [address] [place] [address] Care Team Providers Name Role Phone Omar Diggs MD Primary Care Physician Wali Campbell MD Attending Clinician Denia Barrera DPM Attending Clinician DENIA BARRERA JR Attending Clinician Unavailable Charissa Whitman CRNA Attending Clinician Jose Miguel Day MD Attending Clinician Only, Adc Test Attending Clinician Unavailable Denia Barrera DPM Admitting Clinician DENIA BARRERA JR Admitting Clinician Unavailable Payers Payer Name Policy Type Policy Number Effective Date Expiration Date S ource Problems Condition Condition Condition Status Onset Resolution Last Treating Co mments Source Name Details Category Date Date Treatment Clinician Date Arthrodesi Arthrodesi Disease Active 2020-0 U emili s present s present 5-21 ity of 00:00: [place] 00 Medical Branch Obesity Obesity Disease Active 2020-0 Univers (BMI (BMI 5-21 ity of 30-39.9) 30-39.9) 00:00: [place] 00 Medical Branch GERD GERD Disease Active 2020-0 Univers (gastroeso (gastroeso 5-19 it y of phageal phageal 00:00: [place] reflux reflux 00 Medical disease) disease) Branch Hyperlipid Hyperlipid Disease Active 2020-0 U nivers emia emia 5-19 ity of 00:00: [place] [address] [facility] Pain in Pain in Diagnosis Active 2021-04-21 [facility] right foot right foot 02:01:32 l Active [facility] Diagnosis 04/21/2021 [facility] Closed Closed Diagnosis Active 2021-04-21 Me moria nondisplac nondisplac 02:01:32 l ed ed [facility] fracture fracture of first of first metatarsal metatarsal bone of bone of right foot right foot with with malunion, malunion, subsequent subsequent encounter encounter Active Diagnosis 04/21/2021 [facility] Weakness Weakness Problem Active 2021-04-21 Mem[facility] of right of right 02:01:32 l hip hip Active Josiah n Problem 04/21/2021 [facility] Metatarsal Diagnosis Active 2021-04-21 Memoria ewelina of Metatarsal 02:01:32 l right foot ewelina of Josiah n right foot Active Diagnosis 04/21/2021 [facility] Sprain of Sprain Diagnosis Active 2021-04-21 [facility] ligament of 02:01:32 l of ligament [facility] tarsometat of arsal tarsometat joint of arsal right joint of foot, right initial foot, encounter initial encounter Active Diagnosis 04/21/2021 [facility] Allergies, Adverse Reactions, Alerts Allergy Allergy Status Severity Reaction(s) Onset Inactive Treating Comm ents Source Name Type Date Date Clinician N.K.D.A. N.K.D.A. Active Info Not Jose L baltazar Available 8-10 l 00:00: [place] 00 NO KNOWN Drug Active Univers ALLERGIE Class ity of S [facility] Social History Social Habit Start Date Stop Date Quantity Comments Source Exposure to Not sure [facility] SARS-CoV-2 (event) [facility] Gender identity [facility] Sexual orientation [facility] Cigarettes smoked 2020-01-27 2020-01-27 Univers ity of current (pack per 00:00:00 00:00:00 [facility] [place] ) - Reported Branch Cigarette 2020-01-27 2020-01-27 University of pack-years 00:00:00 00:00:00 [facility] Alcohol intake 2020-01-27 2020-01-27 University of 00:00:00 00:00:00 [facility] History of tobacco 2005-02-13 Cigarette Smoker University of use 00:00:00 [facility] Sex Ass[birth year] At [birth year] [facility] 00:[facility]00 [facility] Smoking Status Start Date Stop Date Source Tobacco smoking [facility] consumption unknown Former smoker 2020-01-27 00:00:00 2020-01-27 [place] [facility] f [place] 00:00:00 [facility] Medications Ordered Filled Start Stop Current Ordering Indication Dosage Frequency Signature Comments Components Source Medication Medication Date Date Medication? Clinician (SIG) Name Name levothyroxi 2020-0 Yes 137ug Take 137 U nivers ne 5-21 mcg by ity of (SYNTHROID) 16:26: mouth [place] 137 mcg 27 every Medical tablet morning. Branch omeprazole 2020-0 Yes 20mg Take 20 mg U nivers 20 mg 5-21 by mouth ity of capsule 16:26: daily. [address] levothyroxi 2020-0 Yes 137ug Take 137 U nivers ne 5-21 mcg by ity of (SYNTHROID) 16:26: mouth [place] 137 mcg 27 every Medical tablet morning. Branch omeprazole 2020-0 Yes 20mg Take 20 mg U nivers 20 mg 5-21 by mouth ity of capsule 16:26: daily. [address] HYDROcodone 2020-0 Yes 1{tbl} 1 tablet, Univers -acetaminop 5-21 Oral, ity of hen (NORCO) 14:49: Q6HPRN, Yair as 10-325 mg 42 Starting Medica l tablet 1 Reena Branch tablet 01/29/20 at 0949, Until Discontinu ed, Routine, Pain (scale 4-6), Pain (scale 7-10), [facility] HYDROcodone 2020-0 Yes 1{tbl} 1 tablet, Univers -acetaminop 5-21 Oral, ity of hen (NORCO) 14:49: Q6HPRN, Yair as 10-325 mg 42 Starting Medica l tablet 1 Reena Branch tablet 01/29/20 at 0949, Until Discontinu ed, Routine, Pain (scale 4-6), [facility] Recovery traMADol 2020-0 Yes 50mg 50 mg, Univers (ULTRAM) 5-21 Oral, ity of tablet 50 14:49: Q6HPRN, [place] mg 42 Starting Medical Reena [place] 01/29/20 at 0949, Until Discontinu ed, Routine, Pain (scale 1-3), [facility] Recovery morpHINE 2020-0 Yes 4mg 4 mg, Slow Uni vers injection 4 01-28 IV Push, ity of mg 14:49: Q5MIN PRN, [place] 23 2 doses, Medical [facility] 01/29/20 at 0949, Until Discontinu ed, Routine, Pain (scale 7-10), PACU morpHINE 2020-0 Yes 2mg 2 mg, Slow Uni vers injection 2 01-28 IV Push, ity of mg 14:49: Q5MIN PRN, [place] 23 5 doses, Medical [facility] 01/29/20 at 0949, Until Discontinu ed, Routine, Pain (scale 4-6), PACU ondansetron 2020-0 Yes 4mg 4 mg, Slow Univers (ZOFRAN 01-28 IV Push, ity of (PF)) 14:49: PRN, 1 [place] injection 4 23 dose, Medical mg [facility] 01/29/20 at 0949, Until Discontinu ed, Routine, Nausea and Vomiting (N/V), PACU phenylephri 2020-0 2020- No ONCE INTRA Univers ne 01-28 PROCEDURE, ity of (VAZCULEP) 13:59: 14:53 Starting [place] injection 00 :27 Reena [facility] 01/29/20 at Branch 0859, Until Reena 01/29/20 at 0953, Routine, Intra-op sodium 2020-0 Yes PRN, Univers chloride 01-28 Starting ity of 0.9 % 13:33: Reena [place] irrigation 00 01/29/20 at Med ical solution 0833, Branch Until Discontinu ed, Intra-op bupivacaine 2020-0 Yes PRN, Univer s (preserv 01-28 Starting ity of free) 0.5% 13:31: Reena [place] (SENSORCAIN 00 01/29/20 at [address] E [facility]) 0.5 0831, Branch % (5 mg/mL) Intra-op 5 mL, lidocaine 1% (PF) (XYLOCAINE) 5 mL dexamethaso 2020-0 2020- No Intravenou Univers ne 01-28 s, ONCE ity of (DECADRON 13:13: 14:53 INTRA [place] PHOSPHATE) 00 :27 PROCEDURE, Med ical injection Starting Branch [facility] 01/29/20 at 0813, Until Reena 01/29/20 at 0953, Routine, Intra-op ceFAZolin 2020-0 2020- No ONCE INTRA U nivers (ANCEF) 01-28 PROCEDURE, ity o f injection 13:11: 14:53 Starting Yair as 00 :27 Reena Medical 01/29/20 at Branch 0811, Until Reena 01/29/20 at 0953, GAUTAM, Intra-op propofol IV 2019-0 2020- No Intravenou Univers infusion 01-28 s, ONCE ity of 13:03: 14:53 INTRA [place] 00 :27 PROCEDURE, [facility] Starting Branch [facility] 01/29/20 at 0803, Until [facility] 01/29/20 at 0953, Routine, Intra-op FENTanyl PF 2019-0 2020- No Intravenou Univers (SUBLIMAZE 01-28 s, ONCE ity o f (PF)) 13:00: 14:53 INTRA [place] injection 00 :27 PROCEDURE, Medi leida Starting Branch [facility] 01/29/20 at 0800, Until Reena 01/29/20 at 0953, Routine, Intra-op midazolam 2019-0 2020- No IV Push, Uni vers (VERSED) 01-28 ONCE INTRA ity of injection 13:00: 14:53 PROCEDURE, [place] 00 :27 Starting [facility] 01/29/20 at 0800, Until Reena 01/29/20 at 0953, Routine, Intra-op lactated 2019-0 2020- No IV Univers ringers IV 01-28 Infusion, ity of infusion 13:00: 14:53 CONTINUOUS [place] 00 :27 PRN, [facility] Starting Branch [facility] 01/29/20 at 0800, Until Reena 01/29/20 at 0953, Routine, Intra-op omeprazole 2019-0 Yes 20mg Take 20 mg U nivers 20 mg 5-19 by mouth ity of capsule 19:15: daily. [place] 01 Medical Branch levothyroxi 2013-09 Yes 137ug Take 137 U nivers ne 2-23 mcg by ity of (SYNTHROID) 19:04: mouth [place] 137 mcg 38 every Medical tablet morning. Branch traMADOL 2013-09 Yes 50mg Take 1 Tab Uni vers (ULTRAM) 50 2-19 by mouth ity of mg tablet 00:00: every 6 [place] 00 (six) Medical hours as Branch needed for Pain (scale 4-6). traMADOL 2013-09 Yes 50mg Take 1 Tab Uni vers (ULTRAM) 50 2-19 by mouth ity of mg tablet 00:00: every 6 [place] 00 (six) Medical hours as Branch needed for Pain (scale 4-6). traMADOL 2013-09 Yes 50mg Take 1 Tab Uni vers (ULTRAM) 50 2-19 by mouth ity of mg tablet 00:00: every 6 [place] 00 (six) Medical hours as Branch needed for Pain (scale 4-6). Vital Signs Vital Name Observation Time Observation Value Comments Source Systolic blood 2020-01-29 15:40:00 126 mm[Hg] Univer [facility] Diastolic blood 2020-01-29 15:40:00 77 mm[Hg] [facility] 2020-01-29 15:40:00 71 /min [facility] Respiratory rate 2020-01-29 15:40:00 12 /min [facility] Oxygen saturation in 2020-01-29 15:40:00 95 /min [place] of Arterial blood by [place] [employer] leida Pulse oximetry Branch Body temperature 2020-01-29 11:37:00 36.61 Natalya [facility] Body height 2020-01-27 19:00:00 185.4 cm [facility] Body weight 2020-01-27 19:00:00 120.203 kg [facility] BMI 2020-01-27 19:00:00 34.96 kg/m2 [facility] Systolic blood 2020-01-29 15:40:00 126 mm[Hg] Univer sity [facility] Diastolic blood 2020-01-29 15:40:00 77 mm[Hg] [facility] rate 2020-01-29 15:40:00 71 /min [facility] Respiratory rate 2020-01-29 15:40:00 12 /min [facility] O[facility] saturation in 2020-01-29 15:40:00 95 /min University of Arterial blood by [facility] [place] [facility] Pulse oximetry Branch Body temperature 2020-01-29 11:37:00 36.61 Natalya [facility] Body height 2020-01-27 19:00:00 185.4 cm [facility] [place] [facility] [place] [facility] Body weight 2020-01-27 19:00:00 120.203 kg [facility] [place] [facility] [place] [facility] BMI 2020-01-27 19:00:00 34.96 kg/m2 [facility] Diastolic (mm Hg) 2021-04-19 15:30:00 Mem orial [facility] Systolic (mm Hg) 2021-04-19 15:30:00 Jose L rial [facility] Weight 2021-04-19 15:30:00 [facility] Height 2021-04-19 15:30:00 [facility] Temperature Oral (F) 2021-04-19 15:30:00 96.8 F [facility] Heart Rate 2021-04-19 15:30:00 [facility] Weight 2021-03-04 15:45:00 [facility] Height 2021-03-04 15:45:00 [facility] Weight 2021-02-01 19:00:00 [facility] Height 2021-02-01 19:00:00 [facility] Temperature Oral (F) 2021-02-01 19:00:00 97.9 F [facility] Heart Rate 2021-02-01 19:00:00 [facility] Diastolic (mm Hg) 2021-02-01 19:00:00 Mem orial [facility] Systolic (mm Hg) 2021-02-01 19:00:00 Jose L rial [facility] Weight 2021-01-03 15:45:00 [facility] Height 2021-01-03 15:45:00 [facility] Temperature Oral (F) 2021-01-03 15:45:00 97.7 F [facility] Heart Rate 2021-01-03 15:45:00 [facility] Diastolic (mm Hg) 2021-01-03 15:45:00 Mem orial [facility] Systolic (mm Hg) 2021-01-03 15:45:00 Jose L rial [facility] Weight 2020-12-15 15:15:00 [facility] Height 2020-12-15 15:15:00 [facility] Temperature Oral (F) 2020-12-15 15:15:00 97.7 F [facility] Weight 2020-12-08 15:00:00 [facility] Height 2020-12-08 15:00:00 [facility] Temperature Oral (F) 2020-12-08 15:00:00 97.7 F Reji Saab Procedures Procedure Date / Time Performing Clinician Source Performed NERVE BLOCK 2020-01-30 12:23:55 Jose Miguel Day [facility] FL TIME OR 2020-01-29 14:40:00 Denia Barrera [facility] (NON-REPORTABLE) [facility] INTUBATION 2020-01-29 13:17:03 Cecil Lee [facility] XR CHEST 1 VW 2020-01-29 12:04:50 Denia Barrera [facility] BASIC METABOLIC PANEL 2020-01-29 11:46:00 Denia Barrera [facility] (NA, K, CL, CO2, Medical Branch GLUCOSE, BUN, CREATININE, CA) CBC WITH DIFFERENTIAL 2020-01-29 11:46:00 Denia Barrera [facility] PROTHROMBIN TIME / INR 2020-01-29 11:46:00 Denia Barrera [facility] ACTIVATED PARTIAL 2020-01-29 11:46:00 Denia Barrera [facility] CONSENT/REFUSAL FOR 2020-01-28 18:10:51 Doctor Unassigned, No [facility] DIAGNOSIS AND TREATMENT [facility] ASSIGNMENT OF BENEFITS 2020-01-28 18:10:32 Doctor Unassigned, No [facility] Name [facility] Branch CORONAVIRUS COVID-19 2020-01-28 15:18:00 Denia Barrera [facility] Plan of Care Planned Activity Planned Date Details Comments Source Future Scheduled 2023-02-28 COVID-19 VACCINE (#1) [place] [facility] Test 20:35:32 [code = COVID-19 VACCINE (#1)] Future Scheduled 2023-02-28 Hepatitis C screening [facility] Test 20:35:32 (procedure) [code = 763600230] Future Scheduled 2023-02-28 [facility] Test 20:35:32 malignant neoplasm of colon (procedure) [code = 140790013] Future Scheduled 2023-02-28 [facility] Test 20:35:32 malignant neoplasm of colon (procedure) [code = 783468205] Future Scheduled 2023-02-28 SHINGLES VACCINES (1 [facility] Test 20:35:32 of 2) [code = SHINGLES VACCINES (1 of 2)] Future Scheduled 2023-02-28 INFLUENZA VACCINE Method is Hospital Test 20:35:32 [code = INFLUENZA VACCINE] Future Scheduled 2023-02-28 [facility] Test 20:35:32 malignant neoplasm of colon (procedure) [code = 257794412] Future Scheduled 2023-02-28 [facility] Test 20:35:32 malignant neoplasm of colon (procedure) [code = 244955955] Future Scheduled 2023-02-28 HEPATITIS B VACCINES Met [facility] Test 20:35:32 (1 of 3 - 3-dose series) [code = HEPATITIS B VACCINES (1 of 3 - 3-dose series)] Future Scheduled 2023-02-28 [facility] Test 20:35:32 malignant neoplasm of colon (procedure) [code = 142472884] Future Scheduled 2022-09-25 HEPATITIS B VACCINES Met [facility] Test 15:48:37 (1 of 3 - 3-dose series) [code = HEPATITIS B VACCINES (1 of 3 - 3-dose series)] Future Scheduled 2022-09-25 COVID-19 VACCINE (#1) [place] [facility] Test 15:48:37 [code = COVID-19 VACCINE (#1)] Future Scheduled 2022-09-25 Hepatitis C screening [facility] Test 15:48:37 (procedure) [code = 796992899] Future Scheduled 2022-09-25 COLONOSCOPY SCREENING [facility] Test 15:48:37 [code = COLONOSCOPY SCREENING] Future Scheduled 2022-09-25 SHINGLES VACCINES (1 [facility] Test 15:48:37 of 2) [code = SHINGLES VACCINES (1 of 2)] Future Scheduled 2022-09-25 INFLUENZA VACCINE Method is Hospital Test 15:48:37 [code = INFLUENZA VACCINE] Future Scheduled 2022-07-12 Hepatitis C screening [place] [facility] Test 23:46:31 (procedure) [code = 711272394] Future Scheduled 2022-07-12 COLONOSCOPY SCREENING [facility] Test 23:46:31 [code = COLONOSCOPY SCREENING] Future Scheduled 2022-07-12 SHINGLES VACCINES (1 Met [facility] Test 23:46:31 of 2) [code = SHINGLES VACCINES (1 of 2)] Future Scheduled 2022-07-12 INFLUENZA VACCINE Method [facility] Test 23:46:31 [code = INFLUENZA VACCINE] Future Scheduled 2022-07-12 HEPATITIS B VACCINES Met [facility] Test 23:46:31 (1 of 3 - 3-dose series) [code = HEPATITIS B VACCINES (1 of 3 - 3-dose series)] Future Scheduled 2022-07-12 COVID-19 VACCINE (#1) [place] [facility] Test 23:46:31 [code = COVID-19 VACCINE (#1)] Future Scheduled 2022-07-12 Hepatitis C screening [place] [facility] Test 23:46:31 (procedure) [code = 091353861] Future Scheduled 2022-07-12 COLONOSCOPY SCREENING [facility] Test 23:46:31 [code = COLONOSCOPY SCREENING] Future Scheduled 2022-07-12 SHINGLES VACCINES (1 Met [facility] Test 23:46:31 of 2) [code = SHINGLES VACCINES (1 of 2)] Future Scheduled 2022-07-12 INFLUENZA VACCINE Method [facility] Test 23:46:31 [code = INFLUENZA VACCINE] Future Scheduled 2022-07-12 HEPATITIS B VACCINES Met [facility] Test 23:46:31 (1 of 3 - 3-dose series) [code = HEPATITIS B VACCINES (1 of 3 - 3-dose series)] Future Scheduled 2022-07-12 COVID-19 VACCINE (#1) [place] [facility] Test 23:46:31 [code = COVID-19 VACCINE (#1)] Future Scheduled 2022-07-12 Hepatitis C screening [place] [facility] Test 23:46:31 (procedure) [code = 452513731] Future Scheduled 2022-07-12 COLONOSCOPY SCREENING [facility] Test 23:46:31 [code = COLONOSCOPY SCREENING] Future Scheduled 2022-07-12 SHINGLES VACCINES (1 [facility] Test 23:46:31 of 2) [code = SHINGLES VACCINES (1 of 2)] Future Scheduled 2022-07-12 INFLUENZA VACCINE Method [facility] Test 23:46:31 [code = INFLUENZA VACCINE] Future Scheduled 2022-07-12 HEPATITIS B VACCINES Met [facility] Test 23:46:31 (1 of 3 - 3-dose series) [code = HEPATITIS B VACCINES (1 of 3 - 3-dose series)] Future Scheduled 2022-07-12 COVID-19 VACCINE (#1) [facility] Test 23:46:31 [code = COVID-19 VACCINE (#1)] Future Scheduled 2022-07-12 Hepatitis C screening [place] [facility] Test 23:46:31 (procedure) [code = 487970085] Future Scheduled 2022-07-12 COLONOSCOPY SCREENING [place] [facility] Test 23:46:31 [code = COLONOSCOPY SCREENING] Future Scheduled 2022-07-12 SHINGLES VACCINES (1 Met [facility] Test 23:46:31 of 2) [code = SHINGLES VACCINES (1 of 2)] Future Scheduled 2022-07-12 INFLUENZA VACCINE Method [facility] Test 23:46:31 [code = INFLUENZA VACCINE] Future Scheduled 2022-07-12 HEPATITIS B VACCINES Met [facility] Test 23:46:31 (1 of 3 - 3-dose series) [code = HEPATITIS B VACCINES (1 of 3 - 3-dose series)] Future Scheduled 2022-07-12 COVID-19 VACCINE (#1) [place] [facility] Test 23:46:31 [code = COVID-19 VACCINE (#1)] Encounters Start End Encounter Admission Attending Care Care Encounter Source Date/Time Date/Time Type Type Clinicians Facility Department ID 2023-03-31 Outpatient [id number] [facility] 17:39:46 [id number] [id number]- B [id number] -[id number] [id number] [facility] [id number] 2022-09-25 Outpatient [id number] [facility] 15:48:37 [id number] [id number] CF3-4431- 9 l -[id number] [facility] [id number] 2022-09-24 Outpatient [id number] [facility] 10:40:46 [id number] [id number]- B l -[id number]-006 [id number] [facility] [id number] [id number] [id number] 2022-09-14 Outpatient [id number] [facility] 10:38:16 [id number] 5L3-997Y- A l -L855-J67 [id number] [facility] [id number] F66 [id number] 2022-09-13 Outpatient [id number] [facility] 15:55:57 [id number] [id number]-4F59- 9 l -[id number] [facility] [id number] 063 CHH564 2022-09-12 Outpatient [id number] [facility] 21:52:30 [id number]-471D [id number] AAA-471D- 9 l -[id number] [id number] [facility] [id number] E77 [id number] 2021-10-12 Outpatient [id number] [facility] 08:32:17 [id number]-[id number] FCB-[id number] 8 l -[id number] [id number] [facility] [id number] [id number] 2231-05-03 2022-01-10 Office [place], 1.2.840.6 [id number] Mariela 09:15:00 10:47:12 Visit Wali M. 20228.1.1 290 s t 3.430.2.7 Hospit a .3.402611 l .8 2022-01-10 2022-01-10 Travel 1.2.840.1 1.2.478.244 [id number] Methodi 00:00:00 00:00:[address] 3.430.2.7 0.2.7.3.698 Ho spita .3.492782 084.8 l .8 2021-12-28 2021-12-28 Travel 1.2.840.1 1.2.252.975 [id number] Methodi 00:00:00 00:00:[address] 3.430.2.7 0.2.7.3.698 Ho spita .3.570449 084.8 l .8 2021-04-19 2021-04-19 Outpatient [facility] [id number] eClinic 10:30:00 10:30:00 [facility] 2021-03-17 2021-03-17 [place] [id number] e[facility] 10:35:00 10:35:00 [facility] 2021-03-04 2021-03-04 Out[facility] [place] [id number] e[facility]inic 14:35:00 14:35:00 Branch [facility] 2021-03-04 2021-03-04 Outpatient [place] [id number] eClinic 10:45:00 10:45:00 Branch [facility] 2021-02-01 2021-02-01 Outpatient [place] [id number] e[facility]inic 14:00:00 14:00:00 [facility] 2021-01-03 2021-01-03 Outpatient [place] [id number] eClinic 10:45:00 10:45:00 Branch [facility] 2020-12-21 2020-12-21 Outpatient [place] [id number] eClinic 14:50:00 14:50:00 Branch Branch [facility]Work [facility] Podiatry Podiatry [facility] 2020-12-15 2020-12-15 Outpatient [facility] [id number] eClinic 10:15:00 10:15:00 Branch Branch [facility]Work s Podiatry Podiatry [facility] 2020-12-08 2020-12-08 [facility] [id number] eClinic 10:00:00 10:00:00 [facility] alWork s Podiatry Podiatry [facility] 2020-01-29 2020-01-29 [facility] 1.2.840.114 [id number] 06:29:00 11:24:00 Encounter Denia García 350.1.13.10 [place] 4.2.7.2.686 Surgical [id number] [place] [id number] 2020-01-29 2020-01-29 [facility] 1.2.840.114 [id number] [facility] [place] [facility] 06:29:00 11:24:00 Encounter Denia García 350.1.13.10 ity of [place] 4[place].2.686 [place] [id number] [address] 2020-01-29 2020-01-29 Outpatient [facility] SUSHMA [id number] Univers 06:29:00 11:24:00 DENIA [facility] 2020-01-29 2020-01-29 Anesthesia Charissa Whitman [facility] 1.2.840 .114 [id number] 08:00:00 09:53:00 Jose Miguel Day 350.1.13. 10 [place] 4.2.7.2.686 Surgical [id number] [place] 020 2020-01-29 2020-01-29 Anesthesia Charissa Whitman [facility] 1.2.840 .114 [id number] Univers 08:00:00 09:53:00 Jose Miguel Day 350.1.13. 10 [facility] 4[place]2.7.2.686 [place] [id number] [address] 2020-01-28 2020-01-28 Laboratory Only, [facility] 1.2.840.114 [id number] 10:16:22 10:31:22 Only Test Ricky 350.1.13.10 [place] 4.2.7.2.686 Professio [id number] [facility] [address] 2020-01-28 2020-01-28 Laboratory Only, Adc Test [facility] 1.2.840. 114 [id number] [facility] [place] [facility] 10:16:22 10:31:22 Only Denia Barrera 350.1.13.10 ity of [place] 4.2.7.2.686 Iftikhar mao Professio [id number] Or dical [facility] 353 Branch Building Results Test Test Test Results Result Source Description Time Comments Comments Nerve Block - 2020-01 Jose Miguel Day MD ? ? University Popliteal and -01/30/2020 ?7:30 AM Nerve Block of [place] adductor canal 12:23:5 Procedure: Other Peripheral Medical nerve blocks 5 Nerve Laterality: RightSurgical Branch Anesthesia: no Start Time: 01/29/2020 7:10 AMEnd Time: 01/29/2020 7:34 AMPost Op Pain Management requested by surgeon per surgical: Other (per discussion)Anesthesiologist: Jose Miguel Day MDPerformed by: anesthesiologistPreanesthetic timeout completed prior to procedure: patient identified,IV checked, site marked, risks and benefits discussed, surgical consent, monitors and equipment checked, pre-op evaluation, timeout performedInformed consent obtained patient wishes to proceed: yesPatient position: supine.Sterile Prep/Drape: YesMonitoring: continuous pulse ox and blood pressureInjection Technique: single-shotNeedle Type: StimuplexNeedle Gauge: 21 GNeedle Length: 6.0Number of Attempts: 1Motor response present at (mA): 0.6 (attenuated at)Technique: Stimulating needle, Ultrasound guided, Negative aspiration and Intermittent aspiration during injectionSensory Effect: AdequateEvents: Patient tolerated procedure well, Negative Aspiration, No paresthesia on incremental injection, Local anesthetic solution visualized around nerve and No symptoms of intraneural or IV injection Medications Given: Regional:Ropiv 0.5% 30 mL Sedation:Midazolam 2 mgFentanyl 50 mcg Additional Notes:SP&D to right leg. Stimulating needle passed to sciatic nerve approx 10 cm proximal to popliteal crease. ?Needle visualized and stimulation noted. ?Stimulation attenuated at 0.6 mA. ?20 ml of solution deposited around nerve. ?Next adductor canal visualized, needle advanced to it and 10 ml of solution deposited around nerve. Patient tolerated procedure well with medications administered as noted. [place] TIME OR 2020-01 These images do not require a [place] (NON-REPORT Radiology diagnostic report. [facility] E) 15:04:4 Medical 8 Branch Intubation 2020-01 Cecil Lee CRNA ? ? Un iversity -01/29/2020 ?8:17 of [place] 13:17:0 AMIntubationUrgency: elective Medical 3 Airway not difficult General Branch Information and Staff Patient location during procedure: ORResident/FIELD HUMAN RESOURCES MANAGER: Cecil Lee CRNAPerformed: resident/FIELD HUMAN RESOURCES MANAGER Indications and Patient ConditionIndications for airway management: anesthesiaSpontaneous Ventilation: absentSedation level: deepPreoxygenated: yesPatient position: sniffingMask difficulty assessment: 0 - not attempted Final Airway DetailsFinal airway type: supraglottic airway Successful airway: uniqueSize 5 Number of attempts at approach: 1 Additional CommentsAirway dry intact XR CHEST 1 VW 2020-01 . EXAM: XR CHEST 1 VW HISTORY: surgery COMPARISON: None. of [place] 13:09:4 FINDINGS: The heart and great Medical 2 vessels are normal and the Branch lungs are well expanded andclear [facility], Radiant Results Inft User - 01/29/2020 8:10 AM CDT. EXAM: XR CHEST 1 VWHISTORY: surgery COMPARISON: None.FINDINGS: The heart and great vessels are normal and the lungs are well expanded andclear CBC WITH DIFFERENTIAL 2020-01-29 12:48:00 Test Item Value Reference Range Interpretation Comme nts WBC (test code = 6690-2) See_Comment [A utomated message] The system which generated this result transmitted ref erence range: 4.20 - 10.70 10*3/?L . The reference range was not u sed to interpret this result as normal/abnormal. RBC (test code = 789-8) See_Comment [Au tomated message] The system which generated this result transmitted ref erence range: 4.26 - 5.52 10*6/?L. The reference range was not u sed to interpret this result as normal/abnormal. HGB (test code = 718-7) 15.2 g/dL 12.2-16.4 HCT (test code = 4544-3) 44.2 % 38.4-49.3 MCV (test code = 787-2) 88.6 fL 81.7-95.6 MCH (test code = 785-6) 30.5 pg 26.1-32.7 MCHC (test code = 786-4) 34.4 g/dL 31.2-35 RDW-SD (test code = 40.6 fL 38.5-51.6 95772-6) RDW-CV (test code = 12.6 % 12.1-15.4 788-0) PLT (test code = 777-3) See_Comment [Au tomated message] The system which generated this result transmitted ref erence range: 150 - 328 10*3/?L. The reference range was not u sed to interpret this result as normal/abnormal. MPV (test code = 52588-6) 10.2 fL 9.8-13 NRBC/100 WBC (test code = See_Comment [ Automated message] The system [id number]) which generated this result transmitted ref erence range: 0.0 - 10.0 /100 WBC s. The reference range was not u sed to interpret this result as normal/abnormal. NRBC x10^3 (test code = <0.01 See_Comment [Au tomated message] The system [id number]) which generated this result transmitted ref erence range: 10*3/?L. The re ference range was not used to int erpret this result as normal/abnor mal. GRAN MAT (NEUT) % (test 62.6 % code = 770-8) IMM GRAN % (test code = 0.40 % 1914020303) LYMPH % (test code = 24.5 % 736-9) MONO % (test code = 9.9 % 5905-5) EOS % (test code = 713-8) 1.5 % BASO % (test code = 1.1 % 706-2) GRAN MAT x10^3(ANC) (test 3.29 10*3/uL 1.99-6.95 code = 6739960466) IMM GRAN x10^3 (test code <0.03 0-0.06 = 9124112835) LYMPH x10^3 (test code = 1.29 10*3/uL 1.09-3.23 731-0) MONO x10^3 (test code = 0.52 10*3/uL 0.36-1.02 742-7) EOS x10^3 (test code = 0.08 10*3/uL 0.06-0.53 711-2) BASO x10^3 (test code = 0.06 10*3/uL 0.01-0.09 704-7) [facility] Test Item Value Reference Range Interpretation Comments APTT Patient (test See_Comment [Automat ed code = 3173-2) message] The system which generated this result transmitted reference range : 23 - 38 Seconds . The reference range was not used to interpr et this result as normal/abnormal . FOUZIA (test code = FOUZIA) The [facility] patient population mean normal value for aPTT is 30 seconds. Lab Interpretation Normal (test code = 81011-4) [facility] / [id number] 12:43:00 Test Item Value Reference Range Interpretation Comments PROTIME PATIENT (test See_Comment [Auto mated message] code = 5964-2) The system wh ich generated this result transmitted ref erence range: 12.0 - 1 4.7 Seconds. The re ference range was not u sed to interpret this result as normal/abnor mal. INR (test code = 6301-6) Nor mal INR <1.1; Warfarin Therap eutic range 2.0 to 3. 0 or 2.5 to 3.5, dep ending upon the indica tions. Lab Interpretation (test Normal code = 19774-6) [facility]OL[facility] (NA, K, CL, CO2, GLUCOSE, BUN, CREATININE, CA)2020-01-29 12:25:00 Test Item Value Reference Range Interpretation Comments NA (test code = 140 mmol/L 135-145 8605635600) K (test code = 4.2 mmol/L 3.5-5 0009370521) CL (test code = 106 mmol/L 98-108 7787324501) CO2 TOTAL (test code = 26 mmol/L 23-31 7957682017) AGAP (test code = 2-16 2737992808) BUN (test code = 14 mg/dL 7-23 7828952990) GLUCOSE (test code = 112 mg/dL 70-110 H 3305715055) CREATININE (test code = 0.82 mg/dL 0.6-1.25 5404362312) CALCIUM (test code = 9.3 mg/dL 8.6-10.6 6569191173) eGFR Calculation mL/min/1.73m2 (Non-) (test code = 7330450619) eGFR Calculation mL/min/1.73m2 () (test code = 3215466815) FOUZIA (test code = FOUZIA) Association of Glomerular Filtration Rate (GFR) and Staging of Kidney Disease* + --+ --+ ------+| GFR (mL/min/1.73 m2) ?| With Kidney Damage ?| ?Without Kidney Damage+ --------+ --------+ +| ?>90 ?| ?Stage one ?| ? Normal ?+ ---+ ---+ -------+| ?60-89 ?| ?Stage two ?| ? Decreased GFR ? + --+ --+ ------+| ?30-59 ?| ?Stage three ?| ? Stage three ? + --+ --+ ------+| ?15-29 ?| ?Stage four ? | ? Stage four ?+ ---+ ---+ -------+| ?<15 (or dialysis) ? ?| ?Stage five ? | ? Stage five ?+ ---+ ---+ -------+ *Each stage assumes the associated GFR level has been in effect for at least three months. ?Stages 1 to 5, with or without kidney disease, indicate chronic kidney disease. Notes: Determination of stages one and two (with eGFR >59mL/min/1.73 m2) requires estimation of kidney damage for at least three months as defined by structural or functional abnormalities of the kidney, manifested by either:Pathological abnormalities or Markers of kidney damage (including abnormalities in the composition of the blood or urine or abnormalities in imaging tests). Lab Interpretation Abnormal (test code = 64173-9) [facility] COVID-19 [id number] 17:18:00 Test Item Value Reference Range Interpretation Comments SARS-CoV-2 (test code = Not Detected Not Detected 80288-4) FOUZIA (test code = FOUZIA) ID NOW COVID-19 Assay is an isothermal nucleic acid amplification test intended for the qualitative detection of nucleic acid from SARS-CoV-2 viral RNA in nasopharyngeal (CLOTH DYEING RANGE TENDER) specimens. It is used under Emergency Use Authorization (EUA) by FDA. The limit of detection (LOD) of the assay is 125 Genome Equivalents/mL. A positive result is indicative of the presence of SARS-CoV-2 RNA. ?Clinical correlation with patient history and other diagnostic information is necessary to determine patient infection status. A negative (Not Detected) result does not preclude SARS-CoV-2 infection. Clinical correlation with patient history and other diagnostic information should be used in patient management decisions. Invalid: Please collect a new specimen for repeat patient testing if clinically indicated. Lab Interpretation Normal (test code = 02197-8) [facility]"
[2023-03-31] MEDS ORDERED: NA CHLORIDE 0.9% 1,000 ML ONE (18:18)
[2023-03-31 18:22] LABS: Absolute Lymphocytes (CBC) 1.3 K/uL (0.7-4.9); Hematocrit 43.7 % (39.6-49.0); Lymphocytes % 18.7 % (15.3-44.8); MCV 90.7 fL (80-100); MPV 7.9 fL (7.6-11.3); RBC Red Blood Cell Count 4.82 M/uL (4.33-5.43)
--- NOTE | 2023-03-31 18:35 | RAD REPORT ---
EXAM DESCRIPTION: CT - Head Brain Wo Cont - 03/31/2023 6:22 pm CLINICAL HISTORY: Alteration of awareness/confusion/bilateral arm weakness COMPARISON: None TECHNIQUE: Computed axial tomography of the head was obtained. IV contrast was not requested. All CT scans are performed using dose optimization technique as appropriate and may include automated exposure control or mA/KV adjustment according to patient size. FINDINGS: An intracranial bleed is not seen The ventricles are normal in caliber No extra-axial fluid collection is noted. No significant hypodensity within the brain noted. Empty sella turcica Fluid within the sinuses/ mastoids is not seen. IMPRESSION: No acute intracranial abnormality is seen If patient's symptoms persist MRI of the brain would be recommended
[2023-03-31 18:38] LABS: Potassium 3.8 mEq/L (3.5-5.1); Troponin High Sensitivity 4.7 pg/mL (<58.9)
--- NOTE | 2023-03-31 18:50 | EDPHYS ---
Physician Documentation [facility] Name: Dontae Delgadillo Age: 57 yrs Sex: Male : 1965 Arrival Date: 03/31/2023 Time: 17:36 Bed 6 Private MD: ED Physician Karen Santos HPI: 03/31 17:59 This 57 yrs old Male presents to ER via Wheelchair with complaints of Chest Pain, sk4 Shortness Of Breath. 17:59 pt here with . woke up feeling well around 10am. went outdoors around noon. was sk4 workin [facility]. came in and was confused. c/o weakness all over and some diff catching his breath. no chest pain now but had some tightness earlier. no vomiting/diarrhea. tried drinking water to maintain hydration. . 18:52 Duration: The patient or guardian reports a single episode, that is still ongoing. sk4 Historical: - Allergies: 17:53 No Known Allergies; hb - PMHx: 17:53 Hypothyroidism; hb - Immunization history:: Adult Immunizations up to date. - Social history:: Smoking status: Patient denies any tobacco usage or history of. ROS: 17:59 Constitutional: Negative for fever, chills, and weight loss. sk4 Exam: 17:59 Constitutional: This is a well developed, well nourished patient who is awake, alert, sk4 and in no acute distress. Head/Face: Normocephalic, atraumatic. Eyes: Pupils equal round and reactive to light, extra-ocular motions intact. Lids and lashes normal. Conjunctiva and sclera are non-icteric and not injected. Cornea within normal limits. Periorbital areas with no swelling, redness, or edema. ENT: Nares patent. No nasal discharge, no septal abnormalities noted. Tympanic membranes are normal and external auditory canals are clear. Oropharynx with no redness, swelling, or masses, exudates, or evidence of obstruction, uvula midline. Mucous membranes moist. Neck: Trachea midline, no thyromegaly or masses palpated, and no cervical lymphadenopathy. Supple, full range of motion without nuchal rigidity, or vertebral point tenderness. No Meningismus. Chest/axilla: Normal chest wall appearance and motion. Nontender with no deformity. No lesions are appreciated. Cardiovascular: Regular rate and rhythm with a normal S1 and S2. No gallops, murmurs, or rubs. Normal PMI, no JVD. No pulse deficits. Respiratory: Lungs have equal breath sounds bilaterally, clear to auscultation and percussion. No rales, rhonchi or wheezes noted. No increased work of breathing, no retractions or nasal flaring. Abdomen/GI: Soft, non-tender, with normal bowel sounds. No distension or tympany. No guarding or rebound. No evidence of tenderness throughout. Back: No spinal tenderness. No costovertebral tenderness. Full range of motion. Skin: Warm, dry with normal turgor. Normal color with no rashes, no lesions, and no evidence of cellulitis. MS/ Extremity: Pulses equal, no cyanosis. Neurovascular intact. Full, normal range of motion. Neuro: Awake and alert, GCS 15, oriented to person, place, time, and situation. Cranial nerves II-XII grossly intact. Motor strength 5/5 in all extremities. Sensory grossly intact. Cerebellar exam normal. Normal gait. Vital Signs: 17:51 BP 111 / 55; Pulse 68; Resp 16; Temp 98; Pulse Ox 100% on R/A; Pain 8/10; hb 18:40 BP 120 / 78; Pulse 75; Resp 17; Pulse Ox 99% ; ap3 18:52 BP 121 / 79; Pulse 74; Pulse Ox 98% on R/A; ap3 19:30 BP 123 / 94; Pulse 74; Resp 16; Pulse Ox 100% on R/A; jb4 20:15 BP 132 / 74; Pulse 79; Resp 16; Pulse Ox 95% on R/A; jb4 17:51 Pain Scale: Adult hb MDM: 17:57 Patient medically screened. sk4 17:59 Differential diagnosis: acute myocardial infarction, coronary artery disease chest wall sk4 pain, costochondritis, pleurisy, pneumonia, heat stroke, cva, tia. Data reviewed: vital signs, nurses notes, lab test result(s), EKG, radiologic studies. 18:47 ED course: pt taken to CT immediately. ekg/labs ordered. CT no acute findings. IV sk4 fluids infusing. reassessed: falling asleep/closing eyes during conversation. remains somewhat altered. admitted to hospitalist who will order further imaging as needed.. 03/31 17:56 Order name: Basic Metabolic Panel; Complete Time: 18:42 [facility] 03/31 17:56 Order name: CBC with Diff; Complete Time: 18:37 [facility] 03/31 17:56 Order name: High Sensitivity Troponin; Complete Time: 18:42 [facility] 03/31 18:45 Order name: ETOH Level; Complete [facility]: 19:22 [facility] 03/31 18:45 Order name: UDS; Complete Time: 20:16 sd03/31 18:45 Order name: BNP; Complete Time: 19:51 sd03/31 18:45 Order name: Magnesium; Complete Time: 19:51 sd03/31 18:45 Order name: LFT's; Complete Time: 19:51 sd03/31 18:56 Order name: CPK; Complete Time: 19:51 sd03/31 17:56 Order name: Chest Single View XRAY; Complete Time: 18:55 [facility] 03/31 17:56 Order name: CT Head Brain wo Cont; Complete Time: 18:37 [facility] 03/31 19:22 Order name: Chest For PE Angio CT sd03/31 20:11 Order name: CT; Complete Time: 20:16 EDDC 03/31 17:56 Order name: EKG; Complete Time: 17:56 [facility] 03/31 17:56 Order name: Accucheck; Complete Time: 18:38 [facility] 03/31 17:56 Order name: Cardiac monitoring; Complete Time: 18:06 [facility] 03/31 17:56 Order name: EKG - Nurse/Tech; Complete Time: 17:57 [facility] 03/31 17:56 Order name: IV Saline Lock; Complete Time: 18:06 [facility] 03/31 17:56 Order name: Labs collected and sent; Complete Time: 18:06 [facility] 03/31 17:56 Order name: NPO; Complete Time: 18:06 [facility] 03/31 17:56 Order name: O2 Per Protocol; Complete Time: 18:06 [facility] 03/31 17:56 Order name: O2 Sat Monitoring; Complete Time: 18:06 [facility] Administered Medications: 18:13 Drug: NS 0.9% IV 1000 ml Route: IV; Rate: 1 bolus; Site: right antecubital; ap3 Disposition Summary: 03/31/23 18:50 Hospitalization Ordered Hospitalization Status: Observation sk4 Provider: Alo Bautista sk4 Location: Telemetry/MedSur (observation) sk4 Condition: Stable sk4 Problem: new sk4 Symptoms: are unchanged sk4 Bed/Room Type: Standard 4 Room Assignment: 209(03/31/23 19:30) cg Diagnosis - Altered mental status, unspecified sk4 Forms: - Medication Reconciliation Form sk4 - SBAR form sk4 Signatures: Dispatcher [employer] EDMarty Hughes FNP-C FNP-Cla1 Talia Guerrero, RN RN cg Amelia Price RN RN Matilda Delgado RN RN ap3 Karen Santos [facility] Corrections: (The following items were deleted from the chart) 19:30 18:50 sk4 cg
--- NOTE | 2023-03-31 18:50 | ER ---
Nurse's Notes [facility] Name: Dontae Delgadillo Age: 57 yrs Sex: Male : 1965 Arrival Date: 03/31/2023 Time: 17:36 Bed 6 Private MD: Diagnosis: Altered mental status, unspecified Presentation: 03/31 17:50 Chief complaint: Midsternal chest pain that radiates to left arm and pain in left arm x hb 2 hours. reports he seemed confused this afternoon since working out in the heat all day. Last known normal was 1200. Pt also reports left and and leg "feel weird.". 17:51 Coronavirus screen: At this time, the client does not indicate any symptoms associated hb with coronavirus-19. Ebola Screen: No symptoms or risks identified at this time. Initial Sepsis Screen: Does the patient meet any 2 criteria? No. Patient's initial sepsis screen is negative. Does the patient have a suspected source of infection? No. Patient's initial sepsis screen is negative. Risk Assessment: Do you want to hurt yourself or someone else? Patient reports no desire to harm self or others. Onset of symptoms was March 31, 2023. 17:51 Method Of Arrival: Wheelchair hb 17:51 Acuity: EDUARD 3 hb Historical: - Allergies: 17:53 No Known Allergies; hb - PMHx: 17:53 Hypothyroidism; hb - Immunization history:: Adult Immunizations up to date. - Social history:: Smoking status: Patient denies any tobacco usage or history of. Screenin:08 [facility] ED Fall Risk Assessment (Adult) History of falling in the last 3 months, ap3 including since admission No falls in past 3 months (0 pts) Confusion or Disorientation Yes (5 pts) Intoxicated or Sedated No (0 pts) Impaired Gait Yes (1 pt) Mobility Assist Device Used No (0 pt) Altered Elimination No (0 pt) Score/Fall Risk Level 3 or more points = High Risk. Abuse screen: Denies threats or abuse. Nutritional screening: No deficits noted. Tuberculosis screening: No symptoms or risk factors identified. Assessment: 17:48 Reassessment: Dr. Santos in triage to assess pt. hb 18:09 General: Appears distressed, Behavior is cooperative. Pain: Complains of pain in left ap3 hand Pain does not radiate. Pain began suddenly. Neuro: Level of Consciousness is awake, alert, obeys commands, Oriented to person, place, time, situation, Reports "feeling weird". Cardiovascular: Reports chest pain, Patient's skin is warm and dry. Respiratory: Airway is patent Respiratory effort is even, unlabored, Respiratory pattern is regular, symmetrical. 19:15 Reassessment: Patient appears in no apparent distress at this time. Patient and/or jb4 family updated on plan of care and expected duration. Pain level reassessed. Patient is alert, oriented x 3, equal unlabored respirations, skin warm/dry/pink. 20:30 Reassessment: Patient appears in no apparent distress at this time. Patient and/or jb4 family updated on plan of care and expected duration. Pain level reassessed. Patient is alert, oriented x 3, equal unlabored respirations, skin warm/dry/pink. Vital Signs: 17:51 BP 111 / 55; Pulse 68; Resp 16; Temp 98; Pulse Ox 100% on R/A; Pain 8/10; hb 18:40 BP 120 / 78; Pulse 75; Resp 17; Pulse Ox 99% ; ap3 18:52 BP 121 / 79; Pulse 74; Pulse Ox 98% on R/A; ap3 19:30 BP 123 / 94; Pulse 74; Resp 16; Pulse Ox 100% on R/A; jb4 20:15 BP 132 / 74; Pulse 79; Resp 16; Pulse Ox 95% on R/A; jb4 17:51 Pain Scale: Adult hb ED Course: 17:38 Patient arrived in ED. ts1 17:52 Triage completed. hb 17:52 Arm band placed on. hb 17:55 Matilda Delgado, RN is Primary Nurse. ap3 17:56 Patient maintains SpO2 saturation greater than 95% on room air. ap3 17:56 EKG done, by ED staff, reviewed by Matilda Delgado RN. ap3 17:57 Karen Santos is Attending Physician. sk4 18:06 Inserted saline lock: 20 gauge in right antecubital area, using aseptic technique. ap3 Blood collected. 18:10 clinical research monitor on. Pulse ox on. NIBP on. ap3 18:10 Patient has correct armband on for positive identification. Bed in low position. Call ap3 light in reach. Side rails up X 1. Adult w/ patient. 18:24 CT Head Brain wo Cont In Process Unspecified. EDMS 18:33 Chest Single View XRAY In Process Unspecified. EDMS 18:41 Provided Education on: fall risk education. ap3 18:49 Alo Bautista MD is Hospitalizing Provider. sk4 19:48 UDS Sent. 20:49 No provider procedures requiring assistance completed. Patient admitted, IV remains in jb4 place. Administered Medications: 18:13 Drug: NS 0.9% IV 1000 ml Route: IV; Rate: 1 bolus; Site: right antecubital; ap3 Medication: 18:10 VIS not applicable for this client. ap3 Outcome: 18:50 Decision to Hospitalize by Provider. sk4 20:49 Admitted to Med/surg accompanied by nurse, via stretcher, room 209, with chart, Report jb4 called to FELISHA Velásquez 20:49 Condition: stable 20:49 Discharge instructions given to patient, family, Instructed on the need for admit, Demonstrated understanding of instructions. 20:51 Patient left the ED. 4 Signatures: Dispatcher [employer] EDMS Amelia Price, RN RN Dru Hernandez RN RN jb4 Matilda Delgado RN RN ap3 Britt Teague Karen Santos sk4 Catrachita Koenig PAS PAS ts1 Corrections: (The following items were deleted from the chart) 17:52 17:50 Chief complaint: Midsternal chest pain that radiates to left arm and pain in left hb arm x 2 hours. reports he seemed confused this afternoon. 17:53 17:50 Chief complaint: Midsternal chest pain that radiates to left arm and pain in left hb arm x 2 hours. reports he seemed confused this afternoon. Pt also reports left and and leg "feel weird."
--- NOTE | 2023-03-31 18:52 | RAD REPORT ---
EXAM DESCRIPTION: [place]aur Single View03/31/2023 6:32 pm CLINICAL HISTORY: Chest pain COMPARISON: 2019 FINDINGS: The lungs appear clear of acute infiltrate. The heart is normal size IMPRESSION: No acute abnormalities displayed
[2023-03-31 19:23] LABS: ALT/SGPT 54 U/L (16-61); AST/SGOT 24 U/L (15-37); Albumin 3.7 g/dL (3.4-5.0); Alkaline Phosphatase 111 U/L (45-117); Bilirubin Direct < 0.1 mg/dL (0-0.2); Bilirubin Indirect, Calculated ND mg/dL (0.2-0.8); Bilirubin Total 0.4 mg/dL (0.2-1.0); Magnesium 2.1 mg/dL (1.6-2.4); NT PRO-BNP 27 pg/mL (<125); Protein, Total 7.7 g/dL (6.4-8.2)
[2023-03-31 20:09] LABS: Barbiturates NEGATIVE (NEGATIVE); Benzodiazepines NEGATIVE (NEGATIVE); Cocaine NEGATIVE (NEGATIVE); METHAMPHETAM NEGATIVE (NEGATIVE); Methadone NEGATIVE (NEGATIVE); Opiates NEGATIVE (NEGATIVE); Phencyclidine NEGATIVE (NEGATIVE); THC Cannibis NEGATIVE (NEGATIVE)
--- NOTE | 2023-03-31 20:11 | RAD REPORT ---
EXAM DESCRIPTION: CT - Chest For Pe Angio - 03/31/2023 7:52 pm CLINICAL HISTORY: Chest pain COMPARISON: None. TECHNIQUE: Dynamically enhanced axial 3 mm thick images of the chest were obtained during administra tion of 100 mL Isovue 370 IV contrast. Coronal and oblique reconstruction images were generated and r eviewed. Exam utilizes a protocol for optimal evaluation of pulmonary arterial tree. Maximum intensity projections 3D imaging was utilized All CT scans are performed using dose optimization technique as appropriate and may include automated exposure control or mA/KV adjustment according to patient size. FINDINGS: A pulmonary embolus is not seen. A thoracic aortic aneurysm is not noted. A pleural effusion is not seen. A pericardial effusion is not seen. A lung consolidation is not present. Cholelithiasis IMPRESSION: Negative for a pulmonary embolism.
[2023-03-31] MEDS ORDERED: ONDANSETRON 4 MG/2 ML VIAL IV PRN (20:30)
--- NOTE | 2023-03-31 20:48 | P.HP ---
Certification for Inpatient Patient admitted to: Observation With expected LOS: <2 Midnights Patient will require the following post-hospital care: None Practitioner: I am a practitioner with admitting privileges, knowledge of patient current condition, hospital course, and medical plan of care. Services: Services provided to patient in accordance with Admission requirements found in Title 42 Section 412.3 of the Code of Federal Regulations Patient History Date of Service: 03/31/23 Reason for admission: Chest pain rule out ACS History of Present Illness: 57-year-old male with history of GERD, hypothyroidism, hypertension presents to the emergency department for shortness of breath, chest pain. He was working outside with his putting up a fence from about noon to 4 PM when he began complaining about shortness of breath, pain in his chest at 1 point and also in his fingers on his left hand. He is also quite drowsy, his does report that he is a previous head injury and periodically does have some confusion and lethargy but he is not quite acting himself currently. He was evaluated in the emergency department his initial high-sensitivity troponin is 4.7 creatinine 1.41 GFR 58 glucose 107 CBC was unremarkable EtOH and drug screen were negative CT head negative for acute findings chest x-ray was unremarkable CT PE protocol was negative for pulmonary embolism or aortic aneurysm/dissection. ED provider wishes to admit under observation for ACS rule out. Allergies No Known Allergies Allergy (Verified 12/02/19 12:47) Home Medications: Levothyroxine Sodium [Synthroid] 1 tab PO DAILY 11/11/19 Aspirin [Adult Low Dose Aspirin EC] 81 mg PO DAILY 04/07/20 Losartan Potassium 1 tab PO DAILY 04/07/20 Omeprazole 20 mg PO DAILY 04/07/20 - Past Medical/Surgical History -: Hypertension -: Hypothyroidism -: GERD -: None Psychosocial/ Personal History: Patient is retired, lives at home with his - Family History Family History: Reviewed- Non-Contributory - Social History Smoking Status: Never smoker Alcohol use: No CD- Drugs: No Caffeine use: Yes Place of Residence: Home Review of Systems 10-point ROS is otherwise unremarkable General: Malaise Respiratory: Shortness of Breath Cardiovascular: Chest Pain Physical Examination - Physical Exam General: Alert, In no apparent distress, Oriented x3 HEENT: Atraumatic, PERRLA, Mucous membr. moist/pink, EOMI, Sclerae nonicteric Neck: Supple, No LAD, Without JVD or thyroid abnormality Respiratory: Clear to auscultation bilaterally, Normal air movement Cardiovascular: Regular rate/rhythm, Normal S1 S2 Gastrointestinal: Normal bowel sounds, No tenderness Musculoskeletal: No tenderness Integumentary: No rashes Neurological: Normal gait, Normal speech, Normal strength at 5/5 x4 extr, Normal tone, Normal affect Lymphatics: No axilla or inguinal lymphadenopathy - Studies Laboratory Data (last 24 hrs) 03/31/23 18:07: Magnesium 2.1, Total Bilirubin 0.4, AST 24, ALT 54, Alkaline Phosphatase 111 03/31/23 18:07: WBC 7.20, Hgb 14.7, Hct 43.7, Plt Count 189 03/31/23 18:07: Sodium 138, Potassium 3.8, BUN 20 H, Creatinine 1.41 H, Glucose 107 H Assessment and Plan - Plan Assessment: Chest pain, dyspnea rule out ACS Hypertension Hypothyroidism GERD Plan: Chest pain, dyspnea rule out ACS Trend troponins, monitor on telemetry, cardiology consult, echocardiogram ordered. No signs of overload, CT PE protocol negative for pulmonary embolism/aortic aneurysm/dissection, pleural effusion or pulmonary edema. Patient reports "feeling like he cannot get a good breath" Event began while working out in the heat, CPK ordered and negative, UDS/EtOH negative. Hypertension Hypothyroidism GERD Continue home medications. DVT PPX: Lovenox Code status: Full Discharge Plan: Home Plan to discharge in: 24 Hours - Advance Directives Does patient have a Living Will: Yes Does patient have a Durable POA for Healthcare: Yes - Code Status/Comfort Care Code Status Assessed: Yes (Full code) Critical Care: No Time Spent Managing Pts Care (In Minutes): 55
[2023-03-31] MEDS: NA CHLORIDE 0.9% 1,000 ML IV SCH (20:49)
[2023-03-31] MEDS: ATORVASTATIN 40 MG TAB PO SCH (20:49)
[2023-03-31 22:36] VITALS: BMI 36.6
[2023-04-01] MEDS: NA CHLORIDE 0.9% 1,000 ML IV SCH ×2 (06:01→16:43)
[2023-04-01 06:35] LABS: Absolute Lymphocytes (CBC) 1.4 K/uL (0.7-4.9); Lymphocytes % 27.6 % (15.3-44.8); MCV 89.5 fL (80-100); MPV 7.9 fL (7.6-11.3); RBC Red Blood Cell Count 4.36 M/uL (4.33-5.43)
[2023-04-01 07:27] LABS: Magnesium 1.9 mg/dL (1.6-2.4); Potassium 3.7 mEq/L (3.5-5.1); Thyroid Stimulating Hormone 2.74 uIU/mL (0.358-3.740); Troponin High Sensitivity 4.9 pg/mL (<58.9)
[2023-04-01] MEDS: ENOXAPARIN 40 MG/0.4 ML SQ SCH (08:10)
[2023-04-01] MEDS: ASPIRIN EC 81 MG TAB PO SCH (08:10)
--- NOTE | 2023-04-01 17:05 | P.PN ---
Subjective Date of Service: 04/01/23 Chief Complaint: Chest pain rule out ACS No acute events since admission. He reports that his chest pain is still present, but improved compared to admission. He reports mild shortness of breath on exertion. He denies palpitations, abdominal pain, or nausea/vomiting. Review of Systems 10-point ROS is otherwise unremarkable Respiratory: Shortness of Breath Cardiovascular: Chest Pain Physical Examination - Vital Signs Temperature: 98.0 F Blood Pressure: 122/79 Pulse: 72 Respirations: 16 Pulse Ox (%): 96 - Physical Exam General: Alert, In no apparent distress, Oriented x3 HEENT: Atraumatic, Mucous membr. moist/pink, Sclerae nonicteric Neck: JVD not distended Respiratory: Clear to auscultation bilaterally, Normal air movement Cardiovascular: No edema, Regular rate/rhythm, Normal S1 S2, No gallops, No rubs, No murmurs Gastrointestinal: Normal bowel sounds, Soft and benign, Non-distended, No tenderness, No rebound, No guarding Musculoskeletal: No clubbing Integumentary: No rashes Neurological: Normal speech, Normal affect - Studies Laboratory Data (last 24 hrs) 03/31/23 18:07: Magnesium 2.1, Total Bilirubin 0.4, AST 24, ALT 54, Alkaline Phosphatase 111 03/31/23 18:07: WBC 7.20, Hgb 14.7, Hct 43.7, Plt Count 189 03/31/23 18:07: Sodium 138, Potassium 3.8, BUN 20 H, Creatinine 1.41 H, Glucose 107 H Assessment And Plan - Plan # Atypical Chest Pain # Hypertension - Evaluation thus far: - EKG: without STEMI Criteria, trend - Serial troponin: 4.7 -> 7.1 -> 4.9 - Ordered transthoracic echocardiogram - Chest x-ray = "no acute abnormalities displayed." - CT chest angiogram = "negative for a pulmonary embolism." - Management plan: - Consult Cardiology and spoke with Dr. Vazquez - recommendations appreciated - Plan for nuclear stress test tomorrow - Continue aspirin, atorvastatin - If CAD confirmed, consider starting beta-anne marie, SHAMA-inhibitor/ARB as tolerated # Hypothyroidism # Gastroesophageal Reflux Disease - Reconcile home medications once available Alo Bautista M.D.
--- NOTE | 2023-04-01 20:40 | P.PN ---
Date of Service: 04/02/23 Subjective: ROS: 10 point ROS as noted above, otherwise negative Physical Exam: Gen: Alert,oriented, NAD HEENT: normal conjunctiva, sclera anicteric CV: regular rate & rhythm, no edema Pulm: non-labored respirations on room air, clear bilaterally Abd: soft, non-tender, non-distended MSK: no joint tenderness Neuro: normal speech, normal affect, moves all extremities Problem List: 1. Atypical Chest Pain 2. Hypertension 3. Hypothyroidism 4. GERD PLAN troponins negative x3 echo ordered CXR (03/31): negative CTA chest(03/31): no PE Cardiology consulted tentative Stress test today (04/02) Continue aspirin, atorvastatin Confirm home medications, restart as appropriate VTE: Lovenox
[2023-04-01] MEDS: ATORVASTATIN 40 MG TAB PO SCH (21:00)
[2023-04-02] MEDS: NA CHLORIDE 0.9% 1,000 ML IV SCH ×3 (01:12→21:13)
[2023-04-02 04:02] LABS: Absolute Lymphocytes (CBC) 1.5 K/uL (0.7-4.9); Hematocrit 38.8 % (39.6-49.0); Lymphocytes % 32.8 % (15.3-44.8); MCV 89.5 fL (80-100); MPV 7.8 fL (7.6-11.3); RBC Red Blood Cell Count 4.33 M/uL (4.33-5.43)
[2023-04-02 04:18] LABS: Magnesium 1.8 mg/dL (1.6-2.4); Potassium 4.1 mEq/L (3.5-5.1)
[2023-04-02] MEDS: ASPIRIN EC 81 MG TAB PO SCH (07:58)
[2023-04-02] MEDS: ENOXAPARIN 40 MG/0.4 ML SQ SCH (07:59)
[2023-04-02] MEDS ORDERED: REGADENOSON 0.4 MG/5 ML SYR IV ONE (08:07)
--- NOTE | 2023-04-02 10:25 | RAD REPORT ---
EXAM DESCRIPTION: NM - Rest Stress Cardiac Imaging - 04/02/2023 10:12 am CLINICAL HISTORY: CP Chest pain. COMPARISON: No comparisons TECHNIQUE: The patient was administered approximately 10mCi of Tc 99m Sestamibi prior to resting SPE CT imaging of the heart. The patient was then administered approximately 30 mCi of Tc 99m Sestamibi f ollowing exercise or pharmacologic stress. Multiplanar SPECT images were reviewed. FINDINGS: Small area of mild stress-induced ischemia suspected involving the anterior wall near the apex. No fixed defect is seen to suggest hibernating myocardium or scarred myocardium. The end diastolic volume is 133 ml, the end systolic volume is 59 ml, and the ejection fraction is 56 %. IMPRESSION: Small area of mild stress-induced ischemia anteroapical left ventricular myocardium.
[2023-04-02] MEDS: ATORVASTATIN 40 MG TAB PO SCH (21:13)
[2023-04-03 03:29] LABS: Absolute Lymphocytes (CBC) 1.5 K/uL (0.7-4.9); Hematocrit 38.6 % (39.6-49.0); Lymphocytes % 24.8 % (15.3-44.8); MCV 89.4 fL (80-100); MPV 8.3 fL (7.6-11.3); RBC Red Blood Cell Count 4.32 M/uL (4.33-5.43)
[2023-04-03 03:42] LABS: Magnesium 1.8 mg/dL (1.6-2.4); Potassium 3.9 mEq/L (3.5-5.1)
--- NOTE | 2023-04-03 07:13 | TREADPHA ---
DX: CHEST PAIN Date of Study: 04/02/2023 Ht: 6' 0 " Wt: 270 lb 0 oz Consulting Physician: ENA MEDICATIONS: ASPIRIN, LIPITOR, LOVENOX, ZOFRAN HISTORY: 57 YEAR OLD MALE WITH COMPLAINTS OF CHEST PAIN. HISTORY OF HYPERTENSION, HYPOTHYROIDISM, GASTROESPOHAGEAL REFLUX DISEASE, FORMER SMOKER FOR TWENTY YEARS. PHYSICIAL EXAMINATION: RESTING B.P.: 133/89 RESTING H.R.: 89 RESTING EKG: NORMAL SINUS RHYTHM WITH PREMATURE VENTRICULAR COMPLEXES PROTOCOL: PHARMACOLOGIC EXERCISE TIME: 3:30 B.P. AT PEAK STRESS: 138/87 IMPRESSION: LEXISCAN INJECTED. CARDIOLITE GIVEN PER PROTOCOL. SEE NUCLEAR MEDICINE REPORT. PREMATURE VENTRICULAR COMPLEXES NOTED THROUGHOUT PROCEDURE. ONE COUPLET NOTED DURING PROCEDURE. PATIENT COMPLAINTS OF SHORTNESS OF BREATH. NO SUPRAVENTRICULAR TACHCYARDIA, VENTRICULAR TACHCARDIA, PREMATURE ATRIAL COMPLEXES NOTED. NO ELECTROCARDIOGRAM CHANGES OF ISCHEMIA WITH LEXISCAN.
[2023-04-03] MEDS: ASPIRIN EC 81 MG TAB PO SCH (07:48)
[2023-04-03] MEDS: NA CHLORIDE 0.9% 1,000 ML IV SCH (07:50)
[2023-04-03] MEDS ORDERED: LIDOCAINE 1% 20 ML MDV ONE (11:15)
[2023-04-03] MEDS ORDERED: HEPA 1000U/500MLS 2,000 UNIT/1,000 ML BAG IV ONE (11:15)
[2023-04-03] MEDS ORDERED: HEPARIN 10,000 UNIT/10 ML VIAL IV ONE (11:16)
[2023-04-03] MEDS ORDERED: MIDAZOLAM HCL 2 MG/2 ML INJ ONE (11:16)
[2023-04-03] MEDS ORDERED: FENTANYL CITR 100 MCG/2 ML ONE (11:16)
[2023-04-03] MEDS ORDERED: HEPARIN 5000 UNIT/ML 1 ML VIAL ONE (11:16)
[2023-04-03] MEDS ORDERED: VERAPAMIL HCL 10 MG/4 ML VIAL IV ONE (11:16)
[2023-04-03] MEDS ORDERED: NITROGLYCERIN 100 MCG/ML SYR (for cath lab use only) IV ONE (11:16)
[2023-04-03] MEDS ORDERED: ATROPINE SULF 1 MG/10 ML SYR IV ONE (11:17)
[2023-04-03 14:34] VITALS: BP 129/87; TEMP 97.5; O2SAT 100
--- NOTE | 2023-04-03 15:01 | EKG ---
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
--- NOTE | 2023-04-03 16:06 | CON ---
Date of Consultation: 04/02/2023 Reason For Consultation: Chest pain. History Of Present Illness: A 57-year-old male with history of hypertension, hypothyroidism, acid reflux, presented with chest pain and shortness of breath while he was working outside and he became short of breath and had chest pressure, no radiation, and lasted for about 30 minutes, and then resolved after resting, and no further pain since admission. Past Medical History: As outlined above in the HPI. Medications: Refer to reconciliation sheet for detailed list. Allergies: NO KNOWN DRUG ALLERGIES. Family History: No premature coronary artery disease or cancer. Social History: He does not smoke or drink. Does not use any drugs. Review of Systems: All systems reviewed and they were negative except what mentioned in HPI. Physical Examination: Vital Signs: Reviewed. Head and Neck: Pupils are equal, reactive to light. Intact eye movements. No JVD. No cervical lymphadenopathy. Neck is supple. Thyroid is not enlarged. Lungs: Clear to auscultation bilaterally. No rhonchi, wheezing, or crackles. No accessory muscle use. Heart: Regular rate and rhythm. No extra sounds. Abdomen: Soft, nontender. Bowel sounds positive. No organomegaly. No masses or hernia. No rigidity or rebound. Extremities: No edema, clubbing, or cyanosis. Intact pulses. Skin: No rash. Neurologic: Alert, awake, oriented x3. No acute focal deficits appreciated. Investigations: BUN is 13, creatinine 0.9. Troponins are negative, but stress test was done and showed mild stress-induced ischemia in the LAD territory. Assessment And Recommendations: 1. Chest pain with abnormal stress test. Keep n.p.o. past midnight, plan for coronary angiogram tomorrow morning. Continue baby aspirin and recommend to continue Lipitor as well. 2. Dyslipidemia. Continue statin. 3. Hypertension. Blood pressure is controlled. Continue current management. SR/MODL Voice ID: [id number] Report ID: [id number] [id number]
--- NOTE | 2023-04-03 16:22 | OP ---
Date of Procedure: 04/03/2023 Surgeon: KIKA SUTHERLAND Procedure Performed: Selective coronary angiogram. Indication: Abnormal stress test with chest pain. Access: Right radial artery 6-[place] closed with TR band. Complications: None. Bleeding: Less than 20 mL. Description Of Procedure: After risks, benefits, alternatives were explained, the patient agreed to the procedure and signed informed consent. The patient was brought into the cardiac catheterization laboratory, prepped and draped in the usual sterile fashion. Then, I accessed right radial artery us ing pediatric micropuncture kit, placed 6-[place] Slender sheath, took 5-[place] 4.0 catheter int o the aortic root, engaged left main and right coronary artery, took standard views, and then the cat heter was pushed over the wire into the LV, measured the LVEDP, and the catheter was pulled back and no gradient was noted. Then, the catheter was removed, sheath was removed, placed TR band with good hemostasis. Findings: 1.Left main; large, normal. 2.LAD; proximal 40% stenosis and mid 30% stenosis and distal 40% stenosis. Diagonal branches with l uminal irregularities. 3.Left circumflex; very large and dominant, supplies the entire inferior wall. OM1 branch has 40% s tenosis. Otherwise, the circ is entirely normal. 4.RCA; very small, about 1.5 mm vessel with mid 60% stenosis. 5.LVEDP slightly elevated at 18 mmHg and LA pressure was 12 mmHg. Conclusion: 1.Moderate nonobstructive coronary artery disease. 2.Elevated LVEDP. Recommendations: Medical management. /VENKAT Voice ID: [id number] Report ID: [id number]
--- NOTE | 2023-04-03 16:30 | PN ---
Date of Progress Note: 04/03/2023 Subjective: Seen by bedside. No further chest pain, status post coronary angiogram. He has mild-to -moderate nonobstructive coronary artery disease. No further chest pain. Review of Systems: No chest pain, shortness of breath, orthopnea, cough. No nausea, vomiting, diarrhea. All other syst ems reviewed and they were negative. Physical Examination: Vital Signs: Reviewed. Head and Neck: Pupils are equal, reactive to light. Intact eye movements. No JVD. No cervical lym phadenopathy. Neck is supple. Thyroid is not enlarged. Lungs: Clear to auscultation bilaterally. No rhonchi, wheezing, or crackles. No accessory muscle u se. Heart: Regular rate and rhythm. No extra sounds. Abdomen: Soft, nontender. Bowel sounds positive. No organomegaly. No masses or hernia. No rigidi ty or rebound. Extremities: No edema, clubbing, or cyanosis. Intact pulses. Skin: No rash. Neurologic: Alert, awake, oriented x3. No acute focal deficits appreciated. Investigations: BUN is 17, creatinine 0.94, and hemoglobin is 13.4. Assessment And Recommendations: 1.Chest pain with abnormal stress test. Coronary angiogram showed mild nonobstructive coronary percy ry disease. Medical management is recommended. Continue aspirin, high-dose statin, and the patient can be released to follow up as an outpatient. 2.Dyslipidemia. Continue statin. 3.Hypertension. Blood pressure is controlled. From Cardiology standpoint, the patient can be released to follow up as scheduled, as on outpatient basis. SR/MODL Voice ID: [id number] Report ID: [id number]
== END 2023-04-03 16:23 | disposition home or self-care (01) | DRG 287 ==
LOC: ER 17:36 → 2ND 19:26 → OBSVTOIN 04-03 08:20
PROVIDERS: ADMIT Internal Medicine; ATTEND Hospitalist
PROC: 4A023N7 Measurement of Cardiac Sampling and Pressure, Left Heart, Percutaneous Approach (ICD-10-PCS; principal; 2023-04-03)
PROC: B2111ZZ Fluoroscopy of Multiple Coronary Arteries using Low Osmolar Contrast (ICD-10-PCS; 2023-04-03)
DX: I25.10 Atherosclerotic heart disease of native coronary artery without angina pectoris (principal); I10 Essential (primary) hypertension; E78.5 Hyperlipidemia, unspecified; R41.82 Altered mental status, unspecified; E03.9 Hypothyroidism, unspecified; K21.9 Gastro-esophageal reflux disease without esophagitis; Z79.82 Long term (current) use of aspirin
CPT/HCPCS: 36415; 70450; 71045; 71275; 76937; 78452; 80048; 80061; 80076; 80307; 82077; 82550; 83735; 83880; 84439; 84443; 84484; 85025; 93005; 93017; 93458; 99285; A9500; C1893; J0461; J1644; J1650; J2001; J2250; J2785; J3010; J7030; Q9966; Q9967

== ENCOUNTER 2024-07-16 20:22 | Emergency (ER) | payer OTHER ==
--- NOTE | 2024-07-16 22:36 | RAD REPORT ---
EXAMINATION: XR Foot Left 3 View CLINICAL INDICATION: Male, 59 years old. [facility] MAIN PAIN Bed Name: [id number] TECHNIQUE: 3 view radiographs of the left foot were obtained. COMPARISON: No prior exam. FINDINGS: No evidence of fracture or dislocation. Normal alignment. No evidence of arthropathy or oth er focal bone lesion. Mild soft tissue swelling along the sole of the foot without soft tissue gas. Moderate calcaneal spur. Enthesopathy at the Achilles attachment.. No significant degenerative change s. IMPRESSION: No acute osseous abnormality. No soft tissue gas or radiopaque foreign body. Findings as above.
--- NOTE | 2024-07-16 23:04 | ER ---
Nurse's Notes [facility] Name: Dontae Delgadillo Age: 59 yrs Sex: Male : 1965 Arrival Date: 07/16/2024 Time: 20:22 Bed DX3 Private MD: Diagnosis: Pain in left foot Presentation: 07/16 20:42 Chief complaint: Patient states: Left foot pain onset 1 week ago. Pt states that he cm10 stepped on something and has had pain since. Pt states that the pain shoots up his leg. Coronavirus screen: Client denies travel out of the [place] in the last 14 days. Ebola Screen: Patient denies travel to an Ebola-affected area in the 21 days before illness onset. No symptoms or risks identified at this time. Initial Sepsis Screen: Does the patient meet any 2 criteria? No. Patient's initial sepsis screen is negative. Does the patient have a suspected source of infection? No. Patient's initial sepsis screen is negative. Risk Assessment: Do you want to hurt yourself or someone else? Patient reports no desire to harm self or others. Onset of symptoms was July 16, 2024. 20:42 Method Of Arrival: Ambulatory cm10 20:42 Acuity: EDUARD 4 cm10 Triage Assessment: 20:45 General: Appears in no apparent distress. comfortable, Behavior is calm, cooperative. cm10 Neuro: No deficits noted. Level of Consciousness is awake, alert, obeys commands, Oriented to person, place, time, situation, Appropriate for age. Respiratory: No deficits noted. Airway is patent Respiratory effort is even, unlabored, Respiratory pattern is regular, symmetrical. Historical: - Allergies: 20:44 No Known Allergies; cm10 - PMHx: 20:44 Hypothyroidism; Hypercholesterolemia; cm10 20:45 Hypertensive disorder; cm10 - Immunization history:: Adult Immunizations up to date. - Infectious Disease History:: Denies. - Social history:: Smoking status: Patient denies any tobacco usage or history of. Screenin:47 [facility] ED Fall Risk Assessment (Adult) History of falling in the last 3 months, cm10 including since admission No falls in past 3 months (0 pts) Confusion or Disorientation No (0 pts) Intoxicated or Sedated No (0 pts) Impaired Gait No (0 pts) Mobility Assist Device Used No (0 pt) Altered Elimination No (0 pt) Score/Fall Risk Level 0 - 2 = Low Risk Oriented to surroundings, Maintained a safe environment, Hourly rounding (assess needs \T\ fall precautionary measures) done. Abuse screen: Denies threats or abuse. Denies injuries from another. Nutritional screening: No deficits noted. Tuberculosis screening: No symptoms or risk factors identified. Assessment: 23:20 Reassessment: Patient appears in no apparent distress at this time. Pain: Denies pain. Vital Signs: 20:42 BP 104 / 74; Pulse 87; Resp 18; Temp 97.9(TE); Pulse Ox 97% on R/A; Weight 120.2 kg; cm10 Height 6 ft. 1 in. ; Pain 6/10; 20:42 Body Mass Index 34.96 (120.20 kg, 185.42 cm) cm10 20:42 Pain Scale: Adult cm10 ED Course: 20:25 Patient arrived in ED. mr 20:29 Gale Pearson FNP-C is [facility]. kb 20:29 Jodi Biggs MD is Attending Physician. kb 20:44 Triage completed. cm10 20:45 Arm band placed on left wrist. Patient placed in an exam room, on a stretcher. cm10 20:48 Patient has correct armband on for positive identification. cm10 21:02 Sebastián Becerril MD is Attending Physician. kb 21:18 Foot Left 3 View XRAY In Process Unspecified. EDMS 23:21 No provider procedures requiring assistance completed. Patient did not have IV access kl during this emergency room visit. Administered Medications: 23:20 Drug: Cephalexin PO 500 mg PO once Route: PO; Medication: 20:47 VIS not applicable for this client. cm10 Outcome: 23:03 Discharge ordered by . kb 23:21 Discharged to home ambulatory, 23:21 Condition: stable 23:21 Discharge instructions given to patient, Instructed on discharge instructions, follow up and referral plans. medication usage, Demonstrated understanding of instructions, follow-up care, medications, Prescriptions given X 2, 23:21 Patient left the ED. Signatures: Dispatcher [employer] EDMS Gale Pearson FNP-C FNP-Ckb Lewis, Kimberly, RN RN kl Rivera, Mary, Funmilayo Covington RN RN cm10
--- NOTE | 2024-07-16 23:04 | EDPHYS ---
Physician Documentation [facility] Name: Dontae Delgadillo Age: 59 yrs Sex: Male : 1965 Arrival Date: 07/16/2024 Time: 20:22 Bed DX3 Private MD: ED Physician Sebastián Becerril HPI: 07/16 23:57 This 59 yrs old Male presents to ER via Ambulatory with complaints of Foot Pain, Foot kb Injury. 23:57 Pt is a 59 year old male who presents for foot pain and localized swelling that started kb a week and a half ago after stepping on something that punctured his foot. States the pain hasn't improved and the swelling is new. Denies fever. States he is going to [place] this week so he wanted to get it looked at before he left. . Historical: - Allergies: 20:44 No Known Allergies; cm10 - PMHx: 20:44 Hypothyroidism; Hypercholesterolemia; cm10 20:45 Hypertensive disorder; cm10 - Immunization history:: Adult Immunizations up to date. - Infectious Disease History:: Denies. - Social history:: Smoking status: Patient denies any tobacco usage or history of. ROS: 23:55 Constitutional: As per HPI kb Exam: 23:55 Constitutional: This is a well developed, well nourished patient who is awake, alert, kb and in no acute distress. Head/Face: Normocephalic, atraumatic. ENT: Moist Mucous membranes Cardiovascular: Regular rate Respiratory: Respirations even and unlabored. No increased work of breathing. Talking in full sentences MS/ Extremity: Pulses equal, no cyanosis. Neurovascular intact. Full, normal range of motion. Neuro: Awake and alert, GCS 15, oriented to person, place, time, and situation. 23:55 Skin: puncture wound to bottom of left foot with surrounding swelling. No erythema, warmth or drainage. Vital Signs: 20:42 BP 104 / 74; Pulse 87; Resp 18; Temp 97.9(TE); Pulse Ox 97% on R/A; Weight 120.2 kg; cm10 Height 6 ft. 1 in. ; Pain 6/10; 20:42 Body Mass Index 34.96 (120.20 kg, 185.42 cm) cm10 20:42 Pain Scale: Adult cm10 MDM: 20:29 Medical Screening Exam initiated kb 23:56 Differential diagnosis: FB, cellulitis, abscess. Data reviewed: vital signs, nurses kb notes. Counseling: I had a detailed discussion with the patient and/or guardian regarding the historical points, exam findings, and any diagnostic results supporting the discharge/admit diagnosis, radiology results, the need for outpatient follow up, a family practitioner, to return to the emergency department if symptoms worsen or persist or if there are any questions or concerns that arise at home. 07/16 20:49 Order name: Foot Left 3 View XRAY; Complete Time: 22:40 cm10 Administered Medications: 23:20 Drug: Cephalexin PO 500 mg PO once Route: PO; Disposition: 07/17 04:40 Co-signature as Attending Physician, Sebastián Becerril MD I agree with the assessment sp4 and plan of care. I reviewed the patient's care provided by the Advanced Practice Provider and agree with the diagnosis and treatment plan. Disposition Summary: 07/16/24 23:03 Discharge Ordered Notes: Location: Home kb Condition: Stable kb Diagnosis - Pain in left foot kb Followup: kb - With: Emergency Department - When: As needed - Reason: Worsening of condition Followup: kb - With: Private Physician - When: 2 - 3 days - Reason: Recheck today's complaints, Continuance of care, Re-evaluation by your physician Discharge Instructions: - Discharge Summary Sheet kb - Musculoskeletal Pain kb - Wound Infection, [id number] kb Forms: - Medication Reconciliation Form kb - Antibiotic Education kb - Prescription Opioid Use kb - Patient Portal Instructions kb - Leadership Thank You Letter kb Prescriptions: - Cephalexin 500 mg Oral Capsule - take 1 capsule ORAL route every 8 hours for 10 days; 30 capsule; Refills: 0, kb Product Selection Permitted - Diclofenac Sodium 75 mg Oral tablet, delayed release (enteric coated) - take 1 tablet ORAL route 2 times per day As needed; 30 tablet; Refills: 0, kb Product Selection Permitted Signatures: Dispatcher [employer] Gale Hines FNP-C FNP-Ckb Lewis, Kimberly, RN Sebastián Mckeon MD MD sp4 Funmilayo Abad RN RN cm10
[2024-07-16] MEDS ORDERED: CEPHALEXIN 250 MG CAP ONE (23:17)
[2024-07-16 23:28] VITALS: BP 104/74; TEMP 97.9; O2SAT 97
== END 2024-07-16 23:21 | disposition home or self-care (01) ==
LOC: ER 20:22
DX: M79.672 Pain in left foot (principal)